=== PATIENT | male | born 1970 | race Caucasian/White ===

== ENCOUNTER 2017-04-21 04:33 | Inpatient (IN) | payer SELFPAY ==
[~2017-04-21] VITALS: Ht 172.7 cm; Wt 73.0 kg
[2017-04-21] VITALS (13 sets, daily range): BP systolic 83–121; BP diastolic 61–77
[~2017-04-21 04:33] MED LIST: ACET-2619 GT; ALBU3SOL49 NEB; BACL10TA4 GT; BISA10SU2 RC; CLON0.1T78 GT; COLI150P4 IH; FAMO-90 GT; GLU1I IM; GLYC15SO12 OP; INSU100S5 IJ; LACT10SO6 GT; LANTUS SC; LISI10TA11 GT; MAGN400S GT; MER1I IV; METO100T23 GT; NA P133E RC; NUTR30LI5 GT; ONDA4TAB GT; VANC750S IV
[2017-04-21] MEDS ORDERED: ACETAMINOPHEN 325 MG TAB ONE (04:50)
--- NOTE | 2017-04-21 04:50 | NUR ---
ABIBA FOR SOB/ELEVATED TEMP. MED. HX: DIABETES, HTN, NON-VERBAL, RESP, FAILURE. NO N/V/D. PT NON-VERBAL AND NON-AMBULATORY. BREATH SOUNDS DIMINSHED. HR SINUS TACHYCARDIC. PT FEBRILE UPON ARRIVAL TO THE ER AND BLOOD SUGAR IS "HIGH". BREATH SOUNDS DIMINISHED AND PT RECEIVED BREATHING TREATMENT EN ROUTE. PT RECEIVNG 15 LITERS ON NON-REBREATHER. PT HAS GTT. UA COLLECTED AND PT IS DIAPERED. PATIENT POSITIONED FOR COMFORT; HOB ELEVATED; BEDRAILS UP X2; BED DOWN. ER MD MADE AWARE OF PT STATUS.
[2017-04-21] MEDS ORDERED: INSULIN HUMAN REGULAR 100 UNITS/ML 10 ML VIAL IVP ONE (05:00)
[2017-04-21 05:20] LABS: ACETONE, SERUM NEGATIVE (NEGATIVE)
[2017-04-21 05:21] LABS: LIPASE 180 U/L (73-393)
[2017-04-21 05:28] LABS: HEMATOCRIT 48.9 % (36-52); HEMOGLOBIN 15.4 g/dL (12.0-18.0); MEAN CORPUSCULAR HEMOGLOBIN 30 pg (27-31); MEAN CORPUSCULAR HGB CONC 32 g/dL (33-37); MEAN CORPUSCULAR VOLUME 95 fL (80-94); PLATELET COUNT (AUTO) 307 K/uL (140-450); RED BLOOD CELL COUNT(AUTO) 5.15 MIL/uL (4.20-6.10); RED CELL DISTRIBUTION WIDTH 13.9 % (11.6-13.7); WHITE BLOOD COUNT (AUTO) 19.2 K/uL (4.8-10.8)
[2017-04-21 05:31] LABS: ALBUMIN 3.5 g/dL (3.4-5.0); ANION GAP 20.7 (8-16); CARBON DIOXIDE 22.7 mmol/L (21-32); CREATININE 1.6 mg/dL (0.7-1.3); POTASSIUM 4.4 mmol/L (3.5-5.1); TOTAL BILIRUBIN 0.6 mg/dL (0.0-1.0)
--- NOTE | 2017-04-21 05:37 | NUR ---
LACTIC ACID REPORT TO DR ANDRADE.
[2017-04-21 05:38] LABS: LYMPHOCYTES % (MANUAL) 6 % (20-46); MONOCYTES % (MANUAL) 4 % (5-12)
--- NOTE | 2017-04-21 05:42 | NUR ---
BLOOD GLUCOSE LEVEL REPORTED TO DR ANDRADE.
[2017-04-21] MEDS ORDERED: PIPERACILLIN/TAZOBACTAM 2.25 GM VIAL IV ONE (05:45)
[2017-04-21] MEDS ORDERED: PIPERACILLIN/TAZOBACTAM 4.5 GM in DEXTROSE 5% 100 ML IV ONE (05:45)
[2017-04-21] MEDS ORDERED: NACL 0.9% 1,000 ML IV ONE ×2 (05:55→06:15)
--- NOTE | 2017-04-21 06:00 | NUR ---
PT TOLERATING TREATMENT. ANTIBIOTICS STARTED. COOLING MEASURES EFFECTIVE. HEART RATE AND RESPIRATIONS IMPROVING FROM UPON ARRIVAL TO ED.
[2017-04-21] MEDS ORDERED: NACL 0.9% 3,000 ML IV ONE (06:30)
--- NOTE | 2017-04-21 07:13 | NUR ---
REPORT TO FRANK ARBOLEDA
--- NOTE | 2017-04-21 07:15 | NUR ---
received report from Carmen MARIE. er md hurt by bedside reexamining patient. pt tolerating non-rebreather. pulse ox=98%. pt in nad. vss. will continue to monitor.
[2017-04-21] MEDS ORDERED: NACL 0.9% 1,000 ML IV SCH (07:22)
[2017-04-21] MEDS ORDERED: HYDROmorphone PFS 2 MG/ML SYR IVP SCH (07:25)
[2017-04-21] MEDS ORDERED: HYDROcodone/APAP 7.5/325 MG 1 TAB PO PRN ×2 (07:25)
[2017-04-21] MEDS ORDERED: ACETAMINOPHEN 325 MG TAB PO PRN ×2 (07:25)
[2017-04-21] MEDS ORDERED: ONDANSETRON 4 MG/2 ML VIAL IVP PRN ×2 (07:25)
[2017-04-21] MEDS ORDERED: POTASSIUM CHL 20 MEQ/ 1/2 NS 1,000 ML IV ONE (07:25)
[2017-04-21] MEDS ORDERED: LORazepam 2 MG/ML VIAL IVP SCH (07:25)
[2017-04-21] MEDS ORDERED: ALBUTEROL SULFATE/IPRATROPIU 3 ML SOL IH PRN (07:25)
[2017-04-21] MEDS ORDERED: DEXTROSE 50% 50 ML SYR IVP PRN (07:25)
[2017-04-21] MEDS ORDERED: BLOOD GLUCOSE MONITORING 1 DEV DEV FS SCH (07:30)
--- NOTE | 2017-04-21 08:00 | NUR ---
Patient will be admitted to care of Antonio. Admited to ICU. Will go to room ICU #2. Belongings list completed. Bedside Report to Baylee.
[2017-04-21 08:22] LABS: APPEARANCE,URINE CLEAR (CLEAR); BILIRUBIN,URINE NEGATIVE (NEGATIVE); BLOOD, URINE NEGATIVE (NEGATIVE); COLOR,URINE YELLOW (YELLOW); LEUKOCYTE ESTERASE ,URINE NEGATIVE (NEGATIVE); NITRITE, URINE NEGATIVE (NEGATIVE); PH,URINE 5.5 (5.0-9.0); UGLUCOSE 3+ (NEGATIVE)
[2017-04-21 08:26] LABS: BARBITURATE, URINE NEG. ng/ml (NEG <=200); BENZODIAZEPINE, URINE NEG. ng/mL (NEG <=200); CANNABINOID, URINE NEG. ng/mL (NEG <=50); COCAINE, URINE NEG. ng/mL (NEG <=300); OPIATE, URINE NEG. ng/mL (NEG <=2000); PHENCYCLIDINE SCREEN,URINE NEG. ng/mL (NEG <=25)
--- NOTE | 2017-04-21 08:30 | NUR ---
PT TRANSFERRED FROM ER TO ICU VIA GURNEY. PT IS NONVERBAL, DOES NOT FOLLOW COMMANDS AND UNABLE TO MAKE NEEDS KNOWN. FLACC 0. NONVERBAL. PT IS QUADRIPLEGIC. SINUS TACHY ON MONITOR. S1, S2 HEARD. ON O2 AT 15 LPM VIA NONREBREATHER MASK. WHEEZES AND RHONCHI HEARD FROM BL LUNGS. NO SOB NOTED. PT IS TACHYPNEIC. BREATHING IS EVEN BUT LABORED. PERIPHERAL IV G20 TO RIGHT HAND ASYMPTOMATIC, PATENT AND INTACT, SALINE LOCKED. G-TUBE IN PLACE, SMALL AMOUNT OF PURULENT DRAINAGE NOTED FROM G-TUBE SITE. ABDOMEN SOFT, NON DISTENDED, NONTENDER WITH ACTIVE BOWEL SOUNDS. OPEN WOUND TO SACRAL AREA AND LEFT HEEL NOTED. SKIN IS DRY AND WARM TO TOUCH. NO EDEMA NOTED. HOB 30 DEGREES, BED IN LOW POSITION AND CALL LIGHT WITHIN REACH. SAFETY PRECAUTIONS IN PLACE. WILL CONTINUE TO MONITOR.
[2017-04-21 08:33] LABS: RBC,URINE 0-5 (RARE) /HPF (0-5); WBC,URINE 0-5 (RARE) /HPF (0-5)
[2017-04-21 08:39] LABS: CHOL/HDL RATIO 7.2 (1-4.5); FREE T4 (FREE THYROXINE) 1.23 ng/dL (0.76-1.46); MAGNESIUM 3.4 mg/dL (1.8-2.4); PHOSPHORUS 3.2 mg/dL (2.5-4.9); THYROID STIMULATING HORMONE 0.75 uIU/mL (0.34-3.74)
[2017-04-21] MEDS ORDERED: DOCUSATE SODIUM 100 MG GELCAP PO SCH (09:00)
[2017-04-21] MEDS ORDERED: PANTOPRAZOLE 40 MG INJ VIAL IVP SCH (09:00)
[2017-04-21] MEDS: DOCUSATE SODIUM 100 MG GELCAP PO SCH ×2 (09:00→20:36)
--- NOTE | 2017-04-21 09:30 | NUR ---
MEDICATIONS ADMINISTERED. HELD COLACE GEL DUE TO UNABLE TO ADMINISTER VIA G-TUBE. DR. MULTANI MADE AWARE AND NOTIFIED TO CHANGE ORDER TO LIQUID FORM.
[2017-04-21] MEDS: BLOOD GLUCOSE MONITORING 1 DEV DEV FS SCH ×8 (09:34→23:41)
--- NOTE | 2017-04-21 09:45 | NUR ---
CHANGE PT OT 50% VENTURI MASK SPO2 IS 97
[2017-04-21] MEDS: PANTOPRAZOLE 40 MG INJ VIAL IVP SCH (09:48)
--- NOTE | 2017-04-21 09:52 | NUR ---
RETURNED PT TO 100%NRB PT DESAT
[2017-04-21] MEDS: INSULIN LISPRO SLIDING SCALE 100 UNITS/ML VIAL SUBQ PRN ×8 (09:58→23:42)
[2017-04-21 10:19] LABS: ANION GAP 15.8 (8-16); CARBON DIOXIDE 27.4 mmol/L (21-32); CREATININE 1.4 mg/dL (0.7-1.3); POTASSIUM 4.2 mmol/L (3.5-5.1)
[2017-04-21] MEDS ORDERED: SODIUM PHOSPHATE 118 ML ENEM RC SCH (10:45)
[2017-04-21] MEDS ORDERED: MAGNESIUM HYDROXIDE 400 MG GT PRN (10:45)
[2017-04-21] MEDS ORDERED: NON-FORMULARY ITEM (Clonidine Hydrochloride (Clonidine) 0.1 MG) GT PRN (10:45)
[2017-04-21] MEDS ORDERED: NON-FORMULARY ITEM (Bisacodyl (Dulcolax) 10 MG) RC PRN (10:45)
--- NOTE | 2017-04-21 11:00 | NUR ---
CLEANED AND REPOSITIONED PT. TOLERATED WELL. NO ACUTE DISTRESS NOTED. WILL CONTINUE TO MONITOR.
[2017-04-21 11:41] LABS: PROTHROMBIN TIME 10.5 secs (10.8-13.4)
[2017-04-21] MEDS ORDERED: cloNIDine 0.1 MG TAB GT PRN (12:05)
[2017-04-21] MEDS: LEVOFLOXACIN 750 MG/D5W PREMIX 150 ML IV SCH (12:07)
[2017-04-21] MEDS ORDERED: BISACODYL 10 MG SUPP RC PRN (12:45)
[2017-04-21] MEDS: ALBUTEROL SULFATE/IPRATROPIU 3 ML SOL IH SCH ×2 (12:59→19:36)
[2017-04-21] MEDS: CLINDAMYCIN 600 MG in DEXTROSE 5% 50 ML IV SCH ×3 (13:02→23:42)
--- NOTE | 2017-04-21 13:30 | NUR ---
PT HR 140. RESIDENT PHYSICIAN DR. MULTANI MADE AWARE. ORDERS RECEIVED.
[2017-04-21 13:55] LABS: ANION GAP 15.4 (8-16); CARBON DIOXIDE 26.6 mmol/L (21-32); CREATININE 1.2 mg/dL (0.7-1.3)
[2017-04-21] MEDS ORDERED: NACL 0.45% 1,000 ML IV SCH (13:55)
[2017-04-21] MEDS ORDERED: METOPROLOL 50 MG TAB GT SCH (14:00)
[2017-04-21] MEDS ORDERED: DEXTROSE 5% 1,000 ML IV ONE (15:00)
--- NOTE | 2017-04-21 15:00 | NUR ---
NO CHANGE OF CONDITION AT THIS TIME. NO SOB OR ACUTE DISTRESS NOTED. SAFETY PRECAUTIONS IN PLACE. WILL CONTINUE TO MONITOR.
[2017-04-21 15:47] LABS: ANION GAP 14.8 (8-16); CARBON DIOXIDE 26.2 mmol/L (21-32); CREATININE 1.1 mg/dL (0.7-1.3)
[2017-04-21] MEDS: DEXTROSE 5% 1,000 ML IV SCH (15:59)
--- NOTE | 2017-04-21 17:06 | NUR ---
CHANGE PT OT 50% VENTURI MASK SPO2 97
--- NOTE | 2017-04-21 17:46 | NUR ---
RESIDENT PHYCISIAN DR. CHATTERJEE IN TO SEE PT. WILL FOLLOW UP ON ORDERS.
--- NOTE | 2017-04-21 17:46 | NUR ---
PT'S HR 112, BP 91,71, RR 37, O2 SAT 95% ON 15 L O2 VIA FACE MASK. DR. CHATTERJEE AT BEDSIDE AND AWARE OF INCREASED HR AND DECREASED BP. WILL FOLLOW UP ON ORDERS.
[2017-04-21 18:39] LABS: ANION GAP 13.7 (8-16); CARBON DIOXIDE 26.2 mmol/L (21-32); CREATININE 1.1 mg/dL (0.7-1.3); POTASSIUM 3.9 mmol/L (3.5-5.1)
--- NOTE | 2017-04-21 19:29 | NUR ---
REPORT GIVEN TO NIGHT NURSE FOR CONTINUITY OF CARE. NO ACUTE DISTRESS AT THIS TIME.
--- NOTE | 2017-04-21 19:30 | NUR ---
RECEIVED REPORT FORM FRANK ANDRADE AT BEDSIDE, PT IS LETHARGIC, NONVERBAL, NOT ABLE TO FOLLOW COMMANDS, NO S/S OF DISTRESS, ON VANTI MASK AT 15 L, RHONCHI LUNG SOUNDS, ST ON PREDATORY ANIMAL EXTERMINATOR, SOFT ABDOMEN NOTED WITH ACTIVE BOWEL SOUNDS, GT IN PLACE, FEEDING WITH DIABETISOURCE AT 10ML /HR WITH 0ML RESIDUALS, DAVIS CATHETER IN PLACE WITH CLEAR YELLOW URINE NOTED, SEVERE WEAKNESS TO ALL EXTREMITIES, SKIN IS WARM AND DRY TO TOUCH, OPEN WOUND PRESENT (SEE WOUND ASSESSMENT), IV LINE TO RIGHT HAND, 20GA, PATENT, RUNNING D5 WATER AT 60ML/HR. VSS, FLACC 0, HOB ELEVATED 30 DEGREES, SAFETY PRECAUTION IN PLACE, WILL CONTINUE TO MONITOR.
--- NOTE | 2017-04-21 19:40 | NUR ---
ACCU CHECK WITH RESULT OF 258MG/DL, 6 UNITS OF INSULIN GIVEN.
[2017-04-21] MEDS: POLYVINYL ALCOHOL 1.4% OP 15 ML SOL OP SCH (20:35)
[2017-04-21] MEDS: METOPROLOL 50 MG TAB GT SCH (20:36)
[2017-04-21] MEDS: SIMVASTATIN 20 MG TAB GT SCH (20:36)
[2017-04-21] MEDS: BACLOFEN 10 MG TAB GT SCH (20:37)
[2017-04-21] MEDS: INSULIN LANTUS 100 UNITS/ML 10 ML VIAL SUBQ SCH (20:38)
[2017-04-21] MEDS ORDERED: HYPROMELLOSE OP SCH (21:00)
[2017-04-21] MEDS ORDERED: PEG OP SCH (21:00)
[2017-04-21] MEDS ORDERED: METOPROLOL TARTRATE 100 MG GT SCH (21:00)
[2017-04-21] MEDS ORDERED: GLYCERIN OP SCH (21:00)
--- NOTE | 2017-04-21 21:45 | NUR ---
ACCU CHECKED WITH 211 MG/DL, 4 UNITS OF INSULIN GIVEN, VSS, FLACC 0, POSITION CHANGED FOR OFF LOAD PRESSURE.
[2017-04-21 22:18] LABS: ANION GAP 12.7 (8-16); CREATININE 1.1 mg/dL (0.7-1.3); POTASSIUM 3.7 mmol/L (3.5-5.1)
[2017-04-22] VITALS (8 sets, daily range): BP systolic 92–110; BP diastolic 60–74
--- NOTE | 2017-04-22 | NUR ---
PT IS ASLEEP SOUNDLY IN BED, ON O2 AT 4L VIA NC AT THIS TIME, NO S/S OF DISTRESS, POSITION CHANGED FOR OFF LOAD PRESSURE.
--- NOTE | 2017-04-22 | NUR ---
PT PLACED ON 4LPM NC, TOLERATING WELL, O2 SAT 97%, WILL CONTINUE TO MONITOR.
[2017-04-22 00:30] LABS: ANION GAP 11.9 (8-16); CARBON DIOXIDE 27.9 mmol/L (21-32); POTASSIUM 3.8 mmol/L (3.5-5.1)
--- NOTE | 2017-04-22 02:00 | NUR ---
NO CHANGE OF CONDITION AT THIS TIME, POSITION CHANGED FOR OFF LOAD PRESSURE.
[2017-04-22] MEDS: BLOOD GLUCOSE MONITORING 1 DEV DEV FS SCH ×11 (02:13→20:53)
[2017-04-22] MEDS: INSULIN LISPRO SLIDING SCALE 100 UNITS/ML VIAL SUBQ PRN ×8 (02:14→20:52)
[2017-04-22 03:24] LABS: CARBON DIOXIDE 28.6 mmol/L (21-32); POTASSIUM 3.6 mmol/L (3.5-5.1)
--- NOTE | 2017-04-22 04:00 | NUR ---
AM CARE AND ORAL CARE PROVIDED, F/C PERFORMED, POSITION CHANGED FOR OFF LOAD PRESSURE. VSS.
--- NOTE | 2017-04-22 06:00 | NUR ---
ACCU CHECK DONE WITH RESULT OF 235MG/DL, 4 UNITS INSULIN GIVEN, O2 ON 3L VIA NC NOW, NO S/S OF DISTRESS, POSITION CHANGED FOR OFF LOAD PRESSURE.
[2017-04-22] MEDS: CLINDAMYCIN 600 MG in DEXTROSE 5% 50 ML IV SCH ×3 (06:04→17:38)
[2017-04-22] MEDS: ALBUTEROL SULFATE/IPRATROPIU 3 ML SOL IH SCH ×2 (06:14→18:59)
[2017-04-22 06:20] LABS: BASOPHILS # (AUTO) 0.6 K/uL (0.00-0.22); EOSINOPHILS # (AUTO) 0.2 K/uL (0-0.4); EOSINOPHILS % (AUTO) 1.1 % (0.0-4.0); HEMATOCRIT 37.5 % (36-52); HEMOGLOBIN 12.4 g/dL (12.0-18.0); LYMPHOCYTES # (AUTO) 1.7 K/uL (2.0-11.5); LYMPHOCYTES % (AUTO) 12.2 % (20.5-51.1); MEAN CORPUSCULAR HEMOGLOBIN 31 pg (27-31); MEAN CORPUSCULAR HGB CONC 33 g/dL (33-37); MEAN CORPUSCULAR VOLUME 95 fL (80-94); MONOCYTES # (AUTO) 0.3 K/uL (0.8-1.0); NEUTROPHILS # (AUTO) 11.3 K/uL (1.8-7.7); NEUTROPHILS % (AUTO) 80.7 % (42.2-75.2); PLATELET COUNT (AUTO) 237 K/uL (140-450); RED BLOOD CELL COUNT(AUTO) 3.96 MIL/uL (4.20-6.10); RED CELL DISTRIBUTION WIDTH 13.5 % (11.6-13.7); WHITE BLOOD COUNT (AUTO) 14.1 K/uL (4.8-10.8)
[2017-04-22 07:08] LABS: ANION GAP 11.8 (8-16); CARBON DIOXIDE 27.9 mmol/L (21-32); POTASSIUM 3.7 mmol/L (3.5-5.1)
[2017-04-22 07:12] LABS: MAGNESIUM 2.6 mg/dL (1.8-2.4); PHOSPHORUS 2.7 mg/dL (2.5-4.9)
--- NOTE | 2017-04-22 07:30 | NUR ---
RECEIVED PT FROM CRACKING UNIT OPERATOR RN, PT OPENS EYES, UNABLE TO FOLLOW COMMANDS. BEDSIDE MONITOR SHOWS ST. ON O2 NC 3L/MIN, NO S/S OF RESPIRATORY DISTRESS NOTED. PT ON DIABETISOURCE FEEDING AT 60 CC/HR, 50 CC RESIDUAL NOTED, RETURNED IT BACK. DAVIS CATH IN PLACE WITH SMALL AMOUNT OF LIGHT MACY URINE NOTED. IV TO RIGHT HAND # 20 RUNNING D5 AT 60 ML/HR, SITE INTACT AND PATENT, SKIN NON INTACT, SEE WOUND ASSESSMENT, TURNED AND REPOSITIONED PT, ORAL CARE GIVEN, WILL CONTINUE TO MONITOR.
[2017-04-22] MEDS: DEXTROSE 5% 1,000 ML IV SCH (07:55)
--- NOTE | 2017-04-22 08:58 | NUR ---
PATIENT HAS BEEN SCREENED AND CATEGORIZED HIGH NUTRITION RISK. PATIENT WILL BE SEEN WITHIN 1-2 DAYS OF ADMISSION. 04/21/18-04/22/[address]
[2017-04-22] MEDS ORDERED: NON-FORMULARY ITEM (Lactulose 20 GM) GT SCH (09:00)
[2017-04-22] MEDS: DOCUSATE SODIUM 100 MG GELCAP PO SCH ×2 (09:19→21:31)
[2017-04-22] MEDS: LACTULOSE 20 GM/30 ML UDC GT SCH (09:19)
[2017-04-22] MEDS: LACTOBACILLUS RHAMNOSUS GG 1 EACH CAP GT SCH (09:19)
[2017-04-22] MEDS: METOPROLOL 50 MG TAB GT SCH ×2 (09:20→20:59)
[2017-04-22] MEDS: LISINOPRIL 10 MG TAB GT SCH (09:20)
[2017-04-22] MEDS: BACLOFEN 10 MG TAB GT SCH ×2 (09:20→21:31)
[2017-04-22] MEDS: PANTOPRAZOLE 40 MG INJ VIAL IVP SCH (09:21)
[2017-04-22] MEDS: POLYVINYL ALCOHOL 1.4% OP 15 ML SOL OP SCH ×2 (09:44→21:32)
[2017-04-22 10:13] LABS: ANION GAP 13.2 (8-16); CARBON DIOXIDE 26.3 mmol/L (21-32); POTASSIUM 3.5 mmol/L (3.5-5.1)
--- NOTE | 2017-04-22 11:05 | NUR ---
PATIENT RECEIVED TO THE UNIT FROM ICU. PATIENT AWAKE BUT APHASIC. PATIENT ON 3L O2, O2 SATURATION 97% AT THIS TIME. NO S/S OF DISTRESS NOTED. G-TUBE IN PLACE. DAVIS CATHETER IN PLACE, DRAINING DARK MACY URINE. CLOSED TRACH STOMA NOTED. SCDS IN PLACE. PATIENT PLACED ON TELE MONITORING. BED LOWERED WITH CALL LIGHT WITHIN REACH.
--- NOTE | 2017-04-22 11:15 | NUR ---
PT TRANSFERRED TO TELE 10A, BEDSIDE REPORT GIVEN TO LAINE MARIE.
--- NOTE | 2017-04-22 11:30 | NUR ---
SKIN EVALUATED WITH WOUND CARE NURSE. SKIN PREP APPLIED TO DTI ON THE LEFT HEEL, HEEL PROTECTOR IN PLACE. INCONTINENCE ASSOCIATED WOUND ON THE BUTTOCKS CLEANSED, OPTIFOAM APPLIED. PICTURES TAKEN
[2017-04-22] MEDS: LEVOFLOXACIN 750 MG/D5W PREMIX 150 ML IV SCH (12:27)
--- NOTE | 2017-04-22 13:14 | NUR ---
WOUND EVALUATION NOTE: REASON FOR WOUND EVALUATION: SACRUM AND LEFT HEEL ULCERS SKIN ASSESSMENT DONE ON THIS 89 Y/O MALE PATIENT [place] [facility] [place] [facility], WITH INITIAL DIAGNOSIS OF ELEVATED BLOOD GLUCOSE. PAST MEDICAL HISTORY INCLUDE DM, HTN, QUADRIPLEGIA, APHASIA, VEGETATIVE STATUS. ALL ABOVE INFORMATION WAS OBTAINED FROM THE ADMISSION H&P. LABS ARE WBC 14.1, H/H 12.4/37.5, GLUCOSE 299, ALBUMIN 3.5. SKIN WARM TO TOUCH, TOENAILS ARE SLIGHTLY THICKENED, NO EDEMA, BLE WITH HAIR GROWTH AND NORMAL PEDAL PULSES. G TUBE IN PLACE , #16 FR F/C PATENT AND INTACT. INCONTINENT OF BOWEL. PT. HAD LARGE SOFT BM DURING SKIN ASSESSMENT. PLAN OF CARE AND PRESSURE PREVENTIVE MEASURES DISCUSSED WITH PRIMARY RN. INTEGUMENTARY: OLD HEALED TRACH STOMA, CLEAN AND DRY GT SITE LYLE-STOMA CLEAN AND INTACT LEFT AND RIGHT BUTTOCKS IAD WITH MULTIPLE SMALL OPEN AREAS , LARGEST MEASURED AT LEFT BUTTOCK 1.5X0.6X0.1 AND RIGHT BUTTOCK 0.5X0.5X0.1 CM SACROCOCCYX - BLANCHABLE REDNESS SKIN INTACT, CLARIFICATION: NO PRESSURE ULCER INJURY ON SACRALCOCCYX AREA LEFT MEDIAL HEEL DTI 100% MAROON, 4X4CM RECOMMENDATIONS: -APPLY SKIN PREP TO LEFT MEDIAL HEEL BIDWC AND LEAVE IT OPEN TO AIR -CLEANSE L/R BUTTOCKS IAD WITH SOAP AND WATER, PAT DRY , APPLY Z GUARD BID WC AND LEAVE OPEN TO AIR -TURN AND REPOSITION PATIENT Q2H -ASSESS AND MONITOR SKIN CONDITION DURING POSITION CHANGE, PLEASE PAY ATTENTION TO LEFT HEEL -OFFLOAD BILATERAL HEELS BY PLACING PILLOWS UNDER CALVES AT ALL TIMES, UNLESS OTHERWISE CONTRAINDICATED -KEEP SKIN CLEAN AND DRY AT ALL TIMES. -HEEL RAISER TO LEFT HEEL AT ALL TIMES. -PRESSURE REDISTRIBUTION SURFACE THERAPY -CONTINUE TO FOLLOW RD RECOMMENDATION COMORBIDITIES FOR WOUND HEALING: DM, QUADRIPLEGIA, HOB ELEVATED MAJORITY OF THE DAY FOR MEDICAL CONDITIONS RECOMMENDATIONS DISCUSSED WITH PRIMARY RN AND DR. QUIGLEY WILL FOLLOW UP PATIENT Q 7-10 DAYS AND PRN. PLEASE CONTACT WOUND CARE NURSE FOR ANY QUESTIONS AND CHANGES IN WOUND CONDITION.
--- NOTE | 2017-04-22 13:15 | NUR ---
pt sleeping with no signs of distress noted at this time
[2017-04-22 15:42] LABS: ANION GAP 13.7 (8-16); CARBON DIOXIDE 24.6 mmol/L (21-32); CREATININE 0.9 mg/dL (0.7-1.3); POTASSIUM 3.3 mmol/L (3.5-5.1)
--- NOTE | 2017-04-22 16:15 | NUR ---
04/22/2017 RD INITIAL ASSESSMENT COMPLETED PLEASE REFER TO NUTRITION ASSESSMENT UNDER CARE ACTIVITY FOR ESTIMATED NUTRITIONAL NEEDS. CONTINUE CURRENT TUBE FEEDING ORDERED, CURRENT TUBE FEEDING IS PROVIDING 1728 KCALS AND 86 GM PRO/DAY, TO MEET 94% EST KCAL AND 118% EST PRO NEEDS/DAY--ADEQUATE PT TO RECEIVE DIABETISOURCE AC AND ANTIHYPERGLYCIEMIC MEDS FOR GLUCOSE CONTROL RD TO FOLLOW-UP IN 2-3 DAYS PATIENT IS HIGH RISK. IRISH CASTREJON, RD
--- NOTE | 2017-04-22 17:30 | NUR ---
NOTIFIED DR SHOAIB CAMERON ABOUT PATIENT'S POTASSIUM LEVEL OF 3.3 AND LOW URINE OUTPUT
--- NOTE | 2017-04-22 19:26 | NUR ---
PATIENT REPORT GIVEN AT BEDSIDE. PATIENT ENDORSED IN STABLE CONDITION.
--- NOTE | 2017-04-22 19:30 | NUR ---
RECEIVED PT FROM LAINE MARIE PT IS OPEN EYES DOES NOT FOLLOW COMMANDS, NON VERBAL,QUADRIPLEGIC, ON TELEMETRY SR, IV ON RT HAND INFUSING WELL ABD G TUBE ZERO RESIDUAL DRESSING DRY AND INTACT ON WOUNDS SEE WOUND DOCUMENTATION, REPOSITIONED INITIAL ASSESSMENT DONE
[2017-04-22 20:22] LABS: ANION GAP 13.1 (8-16); CARBON DIOXIDE 26.4 mmol/L (21-32); CREATININE 0.9 mg/dL (0.7-1.3); POTASSIUM 3.5 mmol/L (3.5-5.1)
[2017-04-22] MEDS: INSULIN LANTUS 100 UNITS/ML 10 ML VIAL SUBQ SCH (21:19)
--- NOTE | 2017-04-22 21:30 | NUR ---
BLOOD SUGAR TEST 258 COVERAGE WITH 6 UNITS SUBQ HUMALOG PROTOCOL
[2017-04-22] MEDS: SIMVASTATIN 20 MG TAB GT SCH (21:31)
[2017-04-22 21:44] LABS: ANION GAP 18.7 (8-16); CARBON DIOXIDE 22.9 mmol/L (21-32); CREATININE 1.1 mg/dL (0.7-1.3); POTASSIUM 3.6 mmol/L (3.5-5.1)
[2017-04-23] VITALS: BP 101/63
--- NOTE | 2017-04-23 | NUR ---
PT REPOSITIONED NOT DISTRESS NOTED ON TELEMETRY SR
[2017-04-23] MEDS: DEXTROSE 5% 1,000 ML IV SCH ×2 (00:35→04:51)
[2017-04-23] MEDS: BLOOD GLUCOSE MONITORING 1 DEV DEV FS SCH ×7 (01:00→20:36)
[2017-04-23] MEDS: INSULIN LISPRO SLIDING SCALE 100 UNITS/ML VIAL SUBQ PRN ×6 (01:18→20:40)
--- NOTE | 2017-04-23 03:00 | NUR ---
PT HAS BEEN REPOSITIONED Q2H NOT DISTRESS NOTED G TUBE FEEDING WELL TOLERATED ON TELEMETRY ST
[2017-04-23 04:00] VITALS: BP 94/56
[2017-04-23] MEDS: CLINDAMYCIN 600 MG in DEXTROSE 5% 50 ML IV SCH ×4 (05:49→13:38)
--- NOTE | 2017-04-23 05:58 | NUR ---
SPONGE BATH GIVEN LINEN CHANGED REPOSITIONED ON TELE ST
--- NOTE | 2017-04-23 06:36 | NUR ---
BLOOD SUGAR TEST 208 COVERAGE WITH 4 UNITS SUBQ HUMALOG PROTOCOL
[2017-04-23 07:10] LABS: BASOPHILS # (AUTO) 0.3 K/uL (0.00-0.22); BASOPHILS % (AUTO) 2.7 % (0.0-2.0); EOSINOPHILS # (AUTO) 0.1 K/uL (0-0.4); EOSINOPHILS % (AUTO) 0.6 % (0.0-4.0); HEMATOCRIT 32.1 % (36-52); LYMPHOCYTES # (AUTO) 1.7 K/uL (2.0-11.5); LYMPHOCYTES % (AUTO) 17.5 % (20.5-51.1); MEAN CORPUSCULAR HEMOGLOBIN 32 pg (27-31); MEAN CORPUSCULAR HGB CONC 34 g/dL (33-37); MEAN CORPUSCULAR VOLUME 93 fL (80-94); MONOCYTES # (AUTO) 0.2 K/uL (0.8-1.0); MONOCYTES % (AUTO) 1.8 % (1.7-9.3); NEUTROPHILS # (AUTO) 7.2 K/uL (1.8-7.7); NEUTROPHILS % (AUTO) 77.4 % (42.2-75.2); PLATELET COUNT (AUTO) 217 K/uL (140-450); RED BLOOD CELL COUNT(AUTO) 3.46 MIL/uL (4.20-6.10); RED CELL DISTRIBUTION WIDTH 13.4 % (11.6-13.7); WHITE BLOOD COUNT (AUTO) 9.5 K/uL (4.8-10.8)
--- NOTE | 2017-04-23 07:10 | NUR ---
RECEIVED REPORT AT BEDSIDE FROM ANIMAL BEHAVIORIST NURSE FOR CONTINUITY OF CARE. PT IN BED RESTING WITH EYES CLOSED. PT NOTED WITH O2 VIA NC @2L/MIN VIA NC. DRY DRESSING TO LOWER LIP. PER ANIMAL BEHAVIORIST NURSE HE WAS BITTING LIP . APPLIED FOR PROTECTION. PT WITH RIGHT HAND IV 20G WITH D5 @60ML/HR. GTUBE WITH DIABETES SOURCE AT 60ML/HR AND [id number]. FC PATENT AND INTACT . YELLOW CLEAR URINE IN DRAINAGE BAG. WOUND CARE NURSE IN THIS MORNING PER ANIMAL BEHAVIORIST NURSE AND WOUND CARE DONE. WILL CONT TO MONITOR PT.
[2017-04-23 07:19] LABS: CARBON DIOXIDE 26.5 mmol/L (21-32); CREATININE 0.7 mg/dL (0.7-1.3); POTASSIUM 3.5 mmol/L (3.5-5.1)
[2017-04-23 07:23] LABS: MAGNESIUM 2.5 mg/dL (1.8-2.4); PHOSPHORUS 2.9 mg/dL (2.5-4.9)
[2017-04-23 08:01] VITALS: BP 104/64
[2017-04-23] MEDS: ALBUTEROL SULFATE/IPRATROPIU 3 ML SOL IH SCH ×3 (08:05→20:08)
[2017-04-23] MEDS: LISINOPRIL 10 MG TAB GT SCH (09:00)
[2017-04-23] MEDS: METOPROLOL 50 MG TAB GT SCH ×2 (09:00→20:31)
--- NOTE | 2017-04-23 09:01 | NUR ---
ASSISTED DEPARTMENT HEAD W/ ADLS. PT IS CLEAN AND DRY. DRESSINGS ARE ALL INTACT. PER MD, WEAN OFF O2 TODAY. PT IS 95% ON ROOM AIR. NO SIGNS OF DISTRESS. WILL CONTINUE TO MONITOR PT.
[2017-04-23] MEDS: PANTOPRAZOLE 40 MG INJ VIAL IVP SCH (09:07)
[2017-04-23] MEDS: BACLOFEN 10 MG TAB GT SCH ×2 (09:08→20:31)
[2017-04-23] MEDS: LACTULOSE 20 GM/30 ML UDC GT SCH (09:08)
[2017-04-23] MEDS: LACTOBACILLUS RHAMNOSUS GG 1 EACH CAP GT SCH (09:09)
[2017-04-23] MEDS: POLYVINYL ALCOHOL 1.4% OP 15 ML SOL OP SCH ×2 (09:12→20:30)
[2017-04-23] MEDS: DOCUSATE 100 MG/10 ML UDC GT SCH ×2 (09:15→20:31)
--- NOTE | 2017-04-23 09:26 | NUR ---
ADMINISTERED MORNING MEDS VIA GTUBE. CHECKED FOR PLACEMENT. CHECKED FOR RESIDUAL. RESIDUAL OF 100ML. WILL HOLD FEEDING FOR 1 HR AND RECHECK. ASKED MD TO CHANGE FROM GELCAP TO LIQUID. D/T TO RESIDUAL PLUS 120ML OF MEDS AND FLUSH, HOLDING OFF ON THE COLACE. PT HAS ANOTHER DOSE DUE IN THE EVENING. ON ROOM AIR, STILL O2 SAT AT 95%. WILL CONTINUE TO MONITOR PT.
--- NOTE | 2017-04-23 10:44 | NUR ---
PT RESTING COMFORTABLY. NO SIGNS OF DISTRESS. CHANGED THE BATTERY ON THE TELE MONITOR. CHECKED FOR RESIDUAL, ONLY 3 MLS. RESTARTED FEEDING. PT TOLERATING WELL. WILL CONTINUE TO MONITOR PT.
--- NOTE | 2017-04-23 10:49 | NUR ---
SPOKE TO RT REGARDING LAB CALLING AND NOTIFIED THAT SPUTUM SPECIMEN WAS NOT VALID BECAUSE IT HAD TOO MUCH SALIVA. RT VERBALIZED THAT SHE WOULD COME TO COLLECT SPECIMEN.
--- NOTE | 2017-04-23 11:07 | NUR ---
SPOKE WITH DR BELL REGARDING PT LOW BP 81/47. BP MEDS HELD THIS AM . DR BELL VERBALIZED TO RAISE HOB , IF BP DOES NOT IMPROVE . TURN OFF G TUBE AND PLACE PT IN [place]EN[place]BURG POSITION. IF BP DOES NOT IMPROVE BY THEN NOTIFY MD FOR BOLUS ORDER.NO DISTRESS NOTED. PT OPENING EYES. RESP EVEN AND UNLABORED. HR 110. PULSE OX 97%. PT APHASIC BUT IS BASELINE. WILL CONT TO MONITOR PT.
--- NOTE | 2017-04-23 11:35 | NUR ---
RECHECKED BP AFTER HOB ELEVATED. BP 98/65,PT WITH EYES OPEN . NO ACUTE DISTRESS NOTED. HR 105. CALL LIGHT WITHIN REACH. WILL CONT TO MONITOR PT.
[2017-04-23 12:00] VITALS: BP 98/65
[2017-04-23] MEDS: LEVOFLOXACIN 750 MG/D5W PREMIX 150 ML IV SCH (12:04)
--- NOTE | 2017-04-23 13:18 | NUR ---
RECHECKED BP 96/63. HR 113. PATIENT IN BED WITH EYES CLOSED. RESP EVEN AND UNLABORED. NO ACUTE DISTRESS. CALL LIGHT WITHIN REACH. WILL CONT TO MONITOR PT.
--- NOTE | 2017-04-23 15:05 | NUR ---
PATIENT IN BED WITH EYES OPEN. TRACKS WITH EYES. NO ACUTE DISTRESS NOTED. NO PAIN NOTED. O FLACC SCORE. O2 SAT 94 % ON ROOM AIR.HR 109. WILL CONT TO MONITOR PT.
[2017-04-23 16:00] VITALS: BP 101/59
--- NOTE | 2017-04-23 16:00 | NUR ---
DR BELL WITH NEW ORDERS FOR CONTACT PRECAUTIONS FOR PT. PT PLACED ON CONTACT PRECAUTIONS WITH MDRO, E COLI, AND ESBL IN URINE. WILL CONT TO MONITOR PT.
[2017-04-23] MEDS ORDERED: LACTOBACILLUS RHAMNOSUS GG 1 EACH CAP PO SCH (17:00)
--- NOTE | 2017-04-23 18:05 | NUR ---
PT IN BED WITH EYES OPEN. PT CHANGED. GOOD PERICARE PROVIDED. T&R . O2 SAT @98% ON ROOM AIR. AND HR110. WILL CONT TO MONITOR PT.
--- NOTE | 2017-04-23 19:13 | NUR ---
ENDORSED REPORT TO SUPERVISOR COFFEE NURSE FOR CONTINUITY OF CARE AT BEDSIDE.
--- NOTE | 2017-04-23 19:20 | NUR ---
RECEIVED REPORT FROM AM NURSE. PT RESTING IN BED, APHASIC, QUADRIPLEGIC BEDBOUND, UNABLE TO VERBALIZE NEEDS. FLACC 2 WITH OCCASIONAL GRIMACE AND MOANS. SPO2 96% ON ROOM AIR, RR 28, HR 118, BP 107/63. DISPLAY CARD WRITER IN PLACE. DRESSING ON BOTTOM LIP CHANGED DUE TO PT BITING PER AM NURSE. GTUBE PLACEMENT VERIFIED, RESIDUAL 50ML, DIABETISOURCE ADMINISTERING WELL AT 60ML/HR. DAVIS CATH IN PLACE, DRAINING CLEAR YELLOW URINE WELL. PT HAS SACRAL WOUND, WILL ASSESS LATER. L HEEL WOUND NOTED, HEEL PROTECTOR IN PLACE. IV ACCESS ASYMPTOMATIC, PATENT AND INTACT. IVF INFUSING WELL. DISCUSSED AND REVIEWED PLAN OF CARE WITH PT, PT IS APHASIC, WILL CONTINUE WITH CONSTANT REINFORCEMENT. ALL NEEDS MET. ALL NEEDS MET. SAFETY MEASURES ENSURED. CALL LIGHT WITHIN REACH.
[2017-04-23 20:00] VITALS: BP 106/61
[2017-04-23] MEDS: PIPER/TAZO 3.375GM/D5W PREMIX 50 ML IV SCH (20:30)
[2017-04-23] MEDS: SIMVASTATIN 20 MG TAB GT SCH (20:31)
[2017-04-23] MEDS: INSULIN LANTUS 100 UNITS/ML 10 ML VIAL SUBQ SCH (20:39)
--- NOTE | 2017-04-23 21:00 | NUR ---
BLOOD GLUCOSE 275, ADMINISTERED INSULIN COVERAGE. GTUBE PLACEMENT VERIFIED, RESIDUAL 50ML, ADMINISTERED DUE MEDS WITH EDUCATION. TEMP 100.4, COOLING MEASURES ENSURED, ADMINISTERED TYLENOL. PT CLEAN AND DRY, SACRAL DRESSING CLEAN DRY INTACT, PT TURNED AND REPOSITIONED WITH WRIST HEMMER, OFFLOADED PRESSURE AREAS, PT TOLERATED WELL. ALL NEEDS MET. SAFETY MEASURES ENSURED. CALL LIGHT WITHIN REACH. SPOKE WITH DR CHATTERJEE, MADE AWARE OF PT'S IVF D5W AT 60ML/HR, DIABETISOURCE AT 60ML/HR, AND TRENDING ELEVATED BLOOD GLUCOSE WITH RECENT BG 275. NO ORDERS CHANGED, EXPLAINED THAT IT IS DUE TO PT'S NA 151 AT THIS TIME.
[2017-04-24] VITALS: BP 91/62
--- NOTE | 2017-04-24 00:30 | NUR ---
PT SLEEPING COMFORTABLY IN BED, AROUSABLE TO TOUCH. PT IS CLEAN AND DRY, PT TURNED AND REPOSITIONED WITH SCHOOL SERVICES OFFICER, OFFLOADED PRESSURE AREAS, TOLERATED WELL. GTUBE PLACEMENT VERIFIED, RESIDUAL 15ML, GTUBE FEEDING ADMINISTERING WELL. SPO2 95% ON ROOM AIR, RR 24, HR 96. INTERMITTENT COUGH NOTED. ORAL CARE PERFORMED. DRESSING TO BOTTOM LIP CHANGED. ALL NEEDS MET. IVF INFUSING WELL. SAFETY MEASURES ENSURED. CALL LIGHT WITHIN REACH.
[2017-04-24 04:00] VITALS: BP 99/60
[2017-04-24] MEDS: PIPER/TAZO 3.375GM/D5W PREMIX 50 ML IV SCH ×2 (04:18→12:07)
--- NOTE | 2017-04-24 04:20 | NUR ---
PT SLEEPING COMFORTABLY IN BED, AROUSABLE TO TOUCH. CHANGED SACRO-COCCYX DRESSING, L AND R COCCYX WOUNDS CLEANSED WITH NS AND GAUZE, PAT DRY, COVERED WITH OPTIFOAM DRESSING. PT TURNED AND REPOSITIONED WITH SALESPERSON RECREATIONAL VEHICLES, OFFLOADED PRESSURE AREAS, TOLERATED WELL. GTUBE PLACEMENT VERIFIED, RESIDUAL 25ML, GTUBE FEEDING ADMINISTERING WELL. SPO2 96% ON ROOM AIR, RR 28, HR 100. DRESSING TO BOTTOM LIP CHANGED. ADMINISTERED DUE MED ZOSYN IVP ORDERED. ALL NEEDS MET. IVF INFUSING WELL. SAFETY MEASURES ENSURED. CALL LIGHT WITHIN REACH.
[2017-04-24] MEDS: INSULIN LISPRO SLIDING SCALE 100 UNITS/ML VIAL SUBQ PRN ×2 (06:22→12:12)
[2017-04-24] MEDS: BLOOD GLUCOSE MONITORING 1 DEV DEV FS SCH ×2 (06:22→12:04)
--- NOTE | 2017-04-24 06:24 | NUR ---
BLOOD GLUCOSE 329, INSULIN COVERAGE ADMINISTERED, PT TOLERATED WELL. PT RESTING COMFORTABLY, SPO2 97% ON ROOM AIR, RR 24 EVEN AND AT BASELINE, HR 92. ALL NEEDS MET. GTUBE FEEDING ADMINISTERING WELL, IVF INFUSING WELL. SAFETY MEASURES ENSURED. CALL LIGHT WITHIN REACH.
[2017-04-24 07:12] LABS: ANION GAP 12.8 (8-16); CARBON DIOXIDE 23.8 mmol/L (21-32); CREATININE 0.8 mg/dL (0.7-1.3); POTASSIUM 3.6 mmol/L (3.5-5.1)
[2017-04-24 07:15] LABS: BASOPHILS # (AUTO) 0.2 K/uL (0.00-0.22); EOSINOPHILS # (AUTO) 0.1 K/uL (0-0.4); EOSINOPHILS % (AUTO) 0.9 % (0.0-4.0); HEMATOCRIT 31.4 % (36-52); HEMOGLOBIN 10.7 g/dL (12.0-18.0); LYMPHOCYTES # (AUTO) 1.1 K/uL (2.0-11.5); LYMPHOCYTES % (AUTO) 13.3 % (20.5-51.1); MEAN CORPUSCULAR HEMOGLOBIN 31 pg (27-31); MEAN CORPUSCULAR HGB CONC 34 g/dL (33-37); MEAN CORPUSCULAR VOLUME 92 fL (80-94); MONOCYTES # (AUTO) 0.2 K/uL (0.8-1.0); MONOCYTES % (AUTO) 2.8 % (1.7-9.3); NEUTROPHILS # (AUTO) 6.6 K/uL (1.8-7.7); PLATELET COUNT (AUTO) 228 K/uL (140-450); RED BLOOD CELL COUNT(AUTO) 3.42 MIL/uL (4.20-6.10); WHITE BLOOD COUNT (AUTO) 8.2 K/uL (4.8-10.8)
--- NOTE | 2017-04-24 07:15 | NUR ---
ENDORSED PLAN OF CARE TO AM NURSE. CONDITION STABLE.
--- NOTE | 2017-04-24 07:16 | NUR ---
RECEIVED REPORT FROM RISK PROFESSIONAL RN. PATIENT IS APHASIC. HE IS ON ROOM AIR AND HAS NO SIGN OR SYMPTOMS OF RESPIRATORY DISTRESS AT THE MOMENT. HE HAS A RIGHT HAND 20G IV INFUSING D5 AT 60ML/HR. SITE IS CLEAN, DRY, PATENT AND INTACT. HAS GT FEEDING DIABETIC SOURCE AT 60ML/HR. HAS A ADVIS CATHETER DRAINING TO GRAVITY. BED IS IN THE LOWEST POSITION, SIDERAILS UP X2, CALL LIGHT WITHIN REACH. WILL CONTINUE TO MONITOR.
[2017-04-24 07:21] LABS: MAGNESIUM 2.5 mg/dL (1.8-2.4); PHOSPHORUS 2.8 mg/dL (2.5-4.9)
[2017-04-24 08:00] VITALS: BP 105/59
[2017-04-24] MEDS: ALBUTEROL SULFATE/IPRATROPIU 3 ML SOL IH SCH ×2 (08:06→13:50)
[2017-04-24] MEDS: LISINOPRIL 10 MG TAB GT SCH (09:00)
[2017-04-24] MEDS: METOPROLOL 50 MG TAB GT SCH (09:00)
[2017-04-24] MEDS: LACTULOSE 20 GM/30 ML UDC GT SCH (10:00)
[2017-04-24] MEDS: BACLOFEN 10 MG TAB GT SCH (10:00)
[2017-04-24] MEDS: PANTOPRAZOLE 40 MG INJ VIAL IVP SCH (10:00)
[2017-04-24] MEDS: DOCUSATE 100 MG/10 ML UDC GT SCH (10:00)
[2017-04-24] MEDS: POLYVINYL ALCOHOL 1.4% OP 15 ML SOL OP SCH (10:01)
[2017-04-24] MEDS: LACTOBACILLUS RHAMNOSUS GG 1 EACH CAP GT SCH (10:01)
--- NOTE | 2017-04-24 11:10 | NUR ---
CM NOTE SPOKE W/ KOBI FROM [facility]; MADE AWARE OF PATIENT'S DISCHARGE ORDERS. PATIENT INFORMATION FAXED. PENDING ROOM NUMBER & TRANSPORT.
[2017-04-24 12:00] VITALS: BP 108/71
[2017-04-24] MEDS ORDERED: MEROPENEM 500 MG in NACL 0.9% 50 ML IV SCH (13:00)
[2017-04-24] MEDS ORDERED: LANTUS SC (15:18)
[2017-04-24] MEDS ORDERED: MER1I IV (15:18)
--- NOTE | 2017-04-24 15:22 | NUR ---
04/24/17 RD FOLLOW UP COMPLETED. 1.PT TO CONTINUE TO RECEIVE >90% EST KCAL AND PROTEIN NEEDS WITHIN 2-3 DAYS 2.NUTRITION RELATED LABS TO TREND WNL WITHIN 2-3 DAYS DISCHARGE PLAN:CURRENT DIET REFLECTS PAST MEDICAL HISTORY AND IS APPROPRIATE FOR DISCHARGE. IRISH CASTREJON RD
[2017-04-24] MEDS ORDERED: SIMV20TA6 GT (15:27)
[2017-04-24] MEDS ORDERED: LACT10CA GT (15:27)
--- NOTE | 2017-04-24 15:43 | NUR ---
CM NOTE PER KOBI, PATIENT'S MEDI-NANCY HAS BEEN RENEWED. PATIENT TO BE PICKED UP VIA GURNEY BY [facility] GOING TO [facility], RM 19B. ETA 1600. PAIGE LAUREN MADE AWARE. # FOR REPORT: [phone]
--- NOTE | 2017-04-24 16:20 | NUR ---
CALLED [facility] AND GAVE REPORT TO PABLO.
--- NOTE | 2017-04-24 16:30 | NUR ---
DISCHARGE ORDERS ARE IN PLACE. [facility] IS HERE TO TRANSPORT PATIENT BACK TO [facility]. PATIENT IS GOING TO ROOM 19B. PATIENT HAS GTUBE, WHICH HAS BEEN DISCONNECTED FROM THE FEEDING AND IS CLAMPED. PATIENT HAS DAVIS CATHETER THAT IS DRAINING TO GRAVITY. ALSO HAS IV TO THE RIGHT HAND 20G ON SALINE LOCK. DISCHARGE PACKET AND EDUCATION HAS BEEN PRINTED AND SENT WITH [facility]. MED REC IN THE PACKET. PATIENT IN STABLE CONDITION. [place] [facility].
[2017-04-24] MEDS ORDERED: INSULIN LANTUS 100 UNITS/ML 10 ML VIAL SUBQ SCH (21:00)
== END 2017-04-24 16:40 | DRG 177 ==
LOC: MED 04:33 → MIC 07:45 → MTU 04-22 11:10
PROVIDERS: ADMIT Family Medicine; ATTEND Family Medicine
DX: J69.0 Pneumonitis due to inhalation of food and vomit (principal); N17.0 Acute kidney failure with tubular necrosis; J96.21 Acute and chronic respiratory failure with hypoxia; E11.00 Type 2 diabetes mellitus with hyperosmolarity without nonketotic hyperglycemic-hyperosmolar coma (NKHHC); G82.50 Quadriplegia, unspecified; D68.59 Other primary thrombophilia; E83.41 Hypermagnesemia; N39.0 Urinary tract infection, site not specified; E87.2 Acidosis; E87.1 Hypo-osmolality and hyponatremia; N17.9 Acute kidney failure, unspecified; E86.0 Dehydration; I10 Essential (primary) hypertension; K21.9 Gastro-esophageal reflux disease without esophagitis; E78.5 Hyperlipidemia, unspecified; E87.8 Other disorders of electrolyte and fluid balance, not elsewhere classified; B96.20 Unspecified Escherichia coli [E. coli] as the cause of diseases classified elsewhere; D64.9 Anemia, unspecified; E86.9 Volume depletion, unspecified; E88.81 Metabolic syndrome and other insulin resistance; J44.9 Chronic obstructive pulmonary disease, unspecified; M19.90 Unspecified osteoarthritis, unspecified site; Z79.4 Long term (current) use of insulin; Z87.11 Personal history of peptic ulcer disease; Z93.1 Gastrostomy status
CPT/HCPCS: 36415; 36600; 71045; 80048; 80053; 80305; 81001; 82009; 82140; 82150; 82803; 82948; 83036; 83605; 83690; 83735; 83880; 84100; 84439; 84443; 84484; 85025; 85610; 85730; 87040; 87070; 87081; 87086; 87186; 87205; 87804; 89220; 93005; 93925; 93970; 94640; 96361; 96365; 96375; 99285; C9113; J1644; J1815; J1956; J2185; J2543; J3480; J3490; J7030; J7060; J7620; Q0092

== ENCOUNTER 2019-04-11 19:47 | Inpatient (IN) | payer MEDICAID ==
[~2019-04-11] VITALS: Ht 172.7 cm; Wt 88.9 kg
[2019-04-11] MEDS: NACL 0.9% 1,000 ML IV SCH (01:08)
[~2019-04-11 19:47] MED LIST changes: -CLON0.1T78 GT; -GLU1I IM; +GLUC1VIA IM; +LACT10CA GT; +SIMV-30 GT
--- NOTE | 2019-04-11 19:50 | NUR ---
PT LIVIA BLS. TAKEN TO BED 2
[2019-04-11 19:55] VITALS: BP 118/80
--- NOTE | 2019-04-11 20:12 | NUR ---
48 Y/O MALE BIBA FROM [facility]. SERVICE COUNSELOR STATES PT HAS FLU LIKE SYMPTOMS THAT STARTED 2 DAYS AGO AND WORSENING TODAY. PT HAS FEVER AT FACILITY, PER SERVICE COUNSELOR; PT'S TEMPT DURING ASSESSMENT IS 100.4 AXILLARY. PT NONVERBAL DURING ASSESSMENT. COUGHING NOTED; LUNG SOUNDS BILAT DIMINISHED, SPO2 AT 97% ROOM AIR. NO SOB/DIFFICULTY BREATHING NOTED. PT TACHYCARDIC. NO N/V, PER SERVICE COUNSELOR. PT PLACED ON MONITOR. ERMD AWARE. WILL CONTINUE TO MONITOR.
[2019-04-11] MEDS ORDERED: NACL 0.9% 2,500 ML IV ONE (20:20)
--- NOTE | 2019-04-11 20:39 | NUR ---
Respiratory Therapist at bedside
--- NOTE | 2019-04-11 20:41 | NUR ---
BLOOD DRAWN AND SENT TO LAB AT THIS TIME
--- NOTE | 2019-04-11 21:01 | NUR ---
XRAY AT BEDSIDE
[2019-04-11 21:14] LABS: BASOPHILS % (AUTO) 0.4 % (0.0-2.0); EOSINOPHILS % (AUTO) 0.1 % (0.0-4.0); HEMATOCRIT 39.3 % (36-52); HEMOGLOBIN 13.2 g/dL (12.0-18.0); LYMPHOCYTES # (AUTO) 0.3 K/uL (2.0-11.5); LYMPHOCYTES % (AUTO) 3.3 % (20.5-51.1); MEAN CORPUSCULAR HEMOGLOBIN 31 pg (27-31); MEAN CORPUSCULAR HGB CONC 34 g/dL (33-37); MEAN CORPUSCULAR VOLUME 92.5 fL (80-94); MONOCYTES # (AUTO) 0.7 K/uL (0.8-1.0); MONOCYTES % (AUTO) 7.5 % (1.7-9.3); NEUTROPHILS # (AUTO) 8.9 K/uL (1.8-7.7); NEUTROPHILS % (AUTO) 88.7 % (42.2-75.2); PLATELET COUNT (AUTO) 278 K/uL (140-450); RED BLOOD CELL COUNT(AUTO) 4.25 MIL/uL (4.20-6.10); RED CELL DISTRIBUTION WIDTH 14.1 % (11.6-13.7)
--- NOTE | 2019-04-11 21:14 | NUR ---
STRAIGHT CATH PERFORMED WITH STERILE TECHNIQUE. PT TOLERATED PROCEDURE. RECEIVED 85ML OF YELLOW CLOUDY URINE. URINE SPECIMEN COLLECTED AT THIS TIME.
[2019-04-11 21:36] LABS: PROTHROMBIN TIME 9.9 secs (10.8-13.4)
[2019-04-11 21:46] LABS: ALBUMIN 3.9 g/dL (3.4-5.0); ANION GAP 17.6 (8-16); CARBON DIOXIDE 22.6 mmol/L (21-32); CREATININE 0.8 mg/dL (0.7-1.3); POTASSIUM 4.2 mmol/L (3.5-5.1); TOTAL BILIRUBIN 0.7 mg/dL (0.0-1.0)
[2019-04-11 22:03] LABS: APPEARANCE,URINE CLOUDY (CLEAR); BILIRUBIN,URINE NEGATIVE (NEGATIVE); BLOOD, URINE NEGATIVE (NEGATIVE); COLOR,URINE YELLOW (YELLOW); LEUKOCYTE ESTERASE ,URINE NEGATIVE (NEGATIVE); NITRITE, URINE NEGATIVE (NEGATIVE); UGLUCOSE NEGATIVE (NEGATIVE)
[2019-04-11] MEDS ORDERED: MORPHINE SULFATE 2 MG/ML SYR IVP PRN (23:45)
[2019-04-11] MEDS ORDERED: ACETAMINOPHEN 325 MG TAB PO PRN (23:45)
[2019-04-11] MEDS ORDERED: HYDROcodone/APAP 5/325 MG 1 TAB TAB PO PRN (23:45)
[2019-04-11] MEDS ORDERED: DOCUSATE SODIUM 100 MG GELCAP PO PRN (23:45)
[2019-04-11] MEDS ORDERED: ONDANSETRON 4 MG/2 ML VIAL IM/IVP PRN (23:45)
[2019-04-12 00:55] VITALS: BP 122/70
--- NOTE | 2019-04-12 00:55 | NUR ---
RECIEVED PT /CATHERINE MORALES ER Elieser AAOX4 - APHASIA , RESPONSE BY FACIAL EXPRESSION AND HEAD NODDING . NID - O2 SAT WNL ,W/ O2 AT 2LPM/NC . FEBRILE . ON PLASTICS FABRICATOR OR WELDER -ST. QUARDRIPLEGIC , INCONTINENT . W/ G TUBE . TRANSFER TO BED BY MANUALLY BY 4 PERSON . ADM. ASSESSMENT DONE - MRSA SPECIMEN COLLECTED AND SENT TO LAB . PUT ON SAFETY / FALL PRECAUTION PROTOCOL- BED ALARM ON . POC DISCUSSED BUT POOR UNDERSTANDING DUE TO MENTAL STATUS. WILL CONT. TO MONITOR. Addendum: 04/12/19 at 0324 by Sydnie Matthews RN THE ABOVE NURSE'S NOTES AAOX4 IS AN ERROR ENTRY INSTEAD OF AAOX1 - KIM
--- NOTE | 2019-04-12 01:00 | NUR ---
PT ADMITTED TO [facility] RM 124B. TRANSFERRED PT VIA [facility] WITH HAYDEE EMT; STABLE CONDITION. REPORT GIVEN TO RECEIVING RN; TRANSFER OF CARE AT THIS TIME.
[2019-04-12] MEDS ORDERED: DEXTROSE 50% 50 ML SYR IVP PRN (01:15)
[2019-04-12] MEDS ORDERED: INSULIN LISPRO SLIDING SCALE 100 UNITS/ML VIAL SUBQ PRN (01:15)
[2019-04-12] MEDS ORDERED: METF-988 GT (01:30)
[2019-04-12] MEDS ORDERED: BACL10TA4 PO (01:30)
[2019-04-12] MEDS ORDERED: LANTUS SC (01:30)
[2019-04-12] MEDS ORDERED: FENO145T PO (01:30)
[2019-04-12] MEDS ORDERED: COL100L GT (01:30)
--- NOTE | 2019-04-12 02:00 | NUR ---
MADE ROUNDS . O2 SAT WNL . STILL FEBRILE - IVF INFUSING WELL - WILL CONT. TO MONITOR.
[2019-04-12] MEDS ORDERED: ALBUTEROL SULFATE/IPRATROPIU 3 ML SOL IH PRN (02:05)
[2019-04-12] MEDS ORDERED: BISACODYL 10 MG SUPP RC PRN (03:05)
[2019-04-12] MEDS ORDERED: MAGNESIUM HYDROXIDE 2400 MG/30 ML UDC GT PRN (03:05)
[2019-04-12 03:38] LABS: MAGNESIUM 1.8 mg/dL (1.8-2.4); PHOSPHORUS 2.6 mg/dL (2.5-4.9); THYROID STIMULATING HORMONE 1.98 uIU/mL (0.34-3.74)
[2019-04-12 04:00] VITALS: BP 120/70
--- NOTE | 2019-04-12 04:00 | NUR ---
INDUCED SPUTUM COLLECTION -DONE BY RT - PROCEDURE TOLERATED WELL - SPECIMEN SENT TO LAB BY RT . WILL CONT. TO MONITOR. O2 SAT WNL.
[2019-04-12] MEDS: BLOOD GLUCOSE MONITORING 1 DEV DEV FS SCH ×4 (05:14→20:22)
--- NOTE | 2019-04-12 06:20 | NUR ---
G TUBE FEEDING START 10/HR INITIALLY - WOF THE REACTION. ASPIRATED THE RESIDUE BEFORE THE FEEDING - 10CCML.
[2019-04-12 07:15] LABS: HEMATOCRIT 38.8 % (36-52); HEMOGLOBIN 12.9 g/dL (12.0-18.0); MEAN CORPUSCULAR HEMOGLOBIN 31 pg (27-31); MEAN CORPUSCULAR HGB CONC 33 g/dL (33-37); MEAN CORPUSCULAR VOLUME 93.2 fL (80-94); PLATELET COUNT (AUTO) 250 K/uL (140-450); RED BLOOD CELL COUNT(AUTO) 4.16 MIL/uL (4.20-6.10); RED CELL DISTRIBUTION WIDTH 14.1 % (11.6-13.7); WHITE BLOOD COUNT (AUTO) 12.3 K/uL (4.8-10.8)
--- NOTE | 2019-04-12 07:25 | NUR ---
DR. TONG CALL MADE NEW ORDER - INCREASE THE IVF TO 50CC /HR - ENDORSED TO LIV FOR CONT. OF CARE . PT -STABLE.
--- NOTE | 2019-04-12 07:30 | NUR ---
RECEIVED BEDSIDE REPORT FROM SPECIALTY THERAPIST NURSE FOR CONTINUITY OF CARE. PT AWAKE AND RESTING ON BED. PT IS AAOX1, APHASIC AND BEDBOUND. RESPIRATION EVEN AND UNLABORED ON 2LPM VIA NC. NO SIGNS OF DISTRESS NOTED. IV ON L HAND 22G, CLEAN AND INTACT, INFUSING NS AT 50 ML/HR. G-TUBE IN PLACE AND INFUSING AT 10 ML/HR GLUCERNA 1.2. SKIN CLEAN AND DRY. PT IS INCONTINENT. DROPLET PRECAUTION IN PLACE AND SIGN POSTED ON DOOR. TELE MONITOR ATTACHED. SAFETY MEASURES IN PLACE. FALL RISK PRECAUTION IN PLACE. BED IN LOW POSITION AND CALL LIGHT WITHIN REACH.
[2019-04-12] MEDS: ALBUTEROL SULFATE/IPRATROPIU 3 ML SOL IH SCH ×3 (07:33→20:10)
[2019-04-12 07:35] LABS: ANION GAP 18.8 (8-16); CARBON DIOXIDE 21.3 mmol/L (21-32); CREATININE 0.8 mg/dL (0.7-1.3); MAGNESIUM 1.7 mg/dL (1.8-2.4); POTASSIUM 4.1 mmol/L (3.5-5.1)
[2019-04-12 08:00] VITALS: BP 123/66
[2019-04-12 08:12] LABS: LYMPHOCYTES % (MANUAL) 9 % (20-46); MONOCYTES % (MANUAL) 9 % (5-12)
[2019-04-12 08:43] LABS: PHOSPHORUS 2.3 mg/dL (2.5-4.9)
[2019-04-12] MEDS ORDERED: metFORMIN 500 MG TAB GT SCH (09:00)
--- NOTE | 2019-04-12 09:50 | NUR ---
CHECKED PT'S TEMP AND RECEIVED 100.6 TEMPORAL, APPLIED ICE PACK ON FOREHEAD AND WILL REASSESS TEMP SHORTLY. CHECKED G-TUBE RESIDUAL AND RECEIVED < 5 ML, INCREASED G-TUBE FEEDING TO 30 ML/HR. PT AWAKE AND RESTING ON BED. FLACC 0. RESPIRATION EVEN AND UNLABORED ON 2LPM VIA NC, SPO2 AT 96%. TELE MONITOR ATTACHED. SAFETY MEASURES IN PLACE.
[2019-04-12 09:54] LABS: CHOL/HDL RATIO 2.4 (1-4.5)
[2019-04-12] MEDS: POLYVINYL ALCOHOL 1.4% OP 15 ML SOL BOTH EYES SCH ×2 (10:27→20:22)
[2019-04-12] MEDS: DOCUSATE 100 MG/10 ML UDC GT SCH ×2 (10:27→20:20)
[2019-04-12] MEDS: OSELTAMIVIR PHOSPHATE 75 MG CAP GT SCH ×2 (10:28→20:20)
[2019-04-12] MEDS: FAMOTIDINE 20 MG TAB GT SCH ×2 (10:28→20:20)
[2019-04-12] MEDS: METOPROLOL 50 MG TAB GT SCH ×2 (10:28→20:20)
[2019-04-12] MEDS: LISINOPRIL 10 MG TAB GT SCH (10:29)
[2019-04-12] MEDS: FENOFIBRATE 48 MG TAB GT SCH (10:29)
[2019-04-12] MEDS ORDERED: CRUSHER, PILL MC ONE (10:33)
[2019-04-12] MEDS: BACLOFEN 10 MG TAB GT SCH ×2 (10:37→20:20)
--- NOTE | 2019-04-12 10:38 | NUR ---
CHECKED BP AND RECEIVED 135/85 PULSE 133. CHECKED G-TUBE RESIDUAL AND RECEIVED < 5 ML, FLUSHED BEFORE AND AFTER MEDS ADMINISTER, MEDS ED PROVIDED TO PT AND REINFORCEMENT NEEDED. PT TOLERATED MEDS WELL. FLACC 0. RESPIRATION EVEN AND UNLABORED ON 2LPM VIA NC, SPO2 AT 97%. INTERMITTENT COUGHS NOTED. TELE MONITOR ATTACHED. NO SIGNS OF DISTRESS NOTED. SAFETY MEASURES IN PLACE. BED IN LOW POSITION AND CALL LIGHT WITHIN REACH.
--- NOTE | 2019-04-12 10:45 | NUR ---
RECHECKED PT'S TEMP ORALLY AND RECEIVED 98.5. FLACC 0. NO SIGNS OF DISTRESS NOTED. TELE MONITOR ATTACHED. SAFETY MEASURES IN PLACE.
--- NOTE | 2019-04-12 11:48 | NUR ---
ASSISTED SENIOR VICE PRESIDENT AND CHIEF INFORMATION OFFICER TO REPOSITION AND TURN PT, PT TOLERATED WELL. NO SIGNS OF DISTRESS NOTED. TELE MONITOR ATTACHED. SAFETY MEASURES IN PLACE. BED IN LOW POSITION AND CALL LIGHT WITHIN REACH. BED ALARM ACTIVATED.
[2019-04-12 12:00] VITALS: BP 103/64
--- NOTE | 2019-04-12 13:45 | NUR ---
PT IS RESTING ON BED WITH EYES OPEN. . FLACC 0. RESPIRATION EVEN AND UNLABORED ON 2LPM VIA NC, SOP2 AT 98% AT THIS TIME. NO SIGNS OF DISTRESS NOTED. TELE MONITOR ATTACHED. SAFETY MEASURES IN PLACE. BED IN LOW POSITION AND CALL LIGHT WITHIN REACH. BED ALARM ACTIVATED.
--- NOTE | 2019-04-12 15:22 | NUR ---
CALLED [facility] [place] AND SPOKE WITH DYLAN FOR PT'S VACCINATION STATUS. PER DYLAN, PT RECEIVED FLU VACCINE 10/03/2018 AND RECEIVED PNA VACCINE ON 12/05/2017.
[2019-04-12] MEDS ORDERED: SODIUM PHOSPHATE 118 ML ENEM RC SCH (15:30)
--- NOTE | 2019-04-12 15:33 | NUR ---
PT IS RESTING ON BED AT THIS TIME AND EYES OPEN VOICE. RESPIRATION EVEN AND UNLABORED ON 2LPM VIA NC, SPO2 AT 98%. FLACC 0. NO SIGNS OF DISTRESS NOTED. TELE MONITOR ATTACHED. SAFETY MEASURES IN PLACE. BED ALARM ACTIVATED.
[2019-04-12] MEDS ORDERED: MAG SULF 2000 MG/WATER PREMIX 50 ML IV ONE (15:40)
--- NOTE | 2019-04-12 15:55 | NUR ---
RADIOLOGY TECHNICIANS ARE TAKING CHEST X-RAY BY BEDSIDE. NO SIGNS OF DISTRESS NOTED. TELE MONITOR ATTACHED. SAFETY MEASURES IN PLACE.
[2019-04-12 16:00] VITALS: BP 102/69
--- NOTE | 2019-04-12 16:09 | NUR ---
WITH ASSIST FROM ANOTHER RN, ADMINISTERED ENEMA, PT TOLERATED WELL. ADMINISTERED MAG SULFATE FOR LOW MAG 1.7 FROM AM LAB, MED ED PROVIDED AND REINFORCEMENT NEEDED. PT AWAKE AND RESTING ON BED AT THIS TIME. INTERMITTENT COUGHS NOTED. SPO2 AT 97% WITH 2LPM VIA NC. FLACC 0. NO SIGNS OF DISTRESS NOTED. TELE MONITOR ATTACHED. SAFETY MEASURES IN PLACE. BED ALARM ACTIVATED.
[2019-04-12] MEDS: metFORMIN 500 MG TAB GT SCH (17:05)
--- NOTE | 2019-04-12 17:07 | NUR ---
ADMINISTERED SCHEDULE MED PER MD ORDER AND 2 UNITS OF HUMALOG SUBQ FOR GLUCOSE 151, CHECKED G-TUBE RESIDUAL AND RECEIVED 5 ML, FLUSHED BEFORE AND AFTER MED ADMINISTER, PT TOLERATED WELL. PT AWAKE AND RESTING ON BED WITH EYES OPEN. FLACC 0, SPO2 AT 97% ON 2LM VIA NC. NO SIGNS OF DISTRESS NOTED. TELE MONITOR ATTACHED. SAFETY MEASURES IN PLACE.
--- NOTE | 2019-04-12 17:42 | NUR ---
ASSISTED CODE CLERK TO REPOSITION AND CLEAN PT, PT HAS ONE MEDIUM SOFT BROWN BM. PT TOLERATED WELL. NO SIGNS OF DISTRESS NOTED. TELE MONITOR ATTACHED. SAFETY MEASURES IN PLACE.
[2019-04-12] MEDS: NACL 0.9% 1,000 ML IV SCH (18:31)
--- NOTE | 2019-04-12 19:18 | NUR ---
ENDORSED PT AT BEDSIDE TO INDEPENDENT LIVING ADVISOR NURSE FOR CONTINUITY OF CARE. PT IS RESTING ON BED WITH 2LPM VIA NC, SPO2 AT 96%. FLACC 0. NO SIGNS OF DISTRESS NOTED. TELE MONITOR ATTACHED. PT IS IN STABLE CONDITION. SAFETY MEASURES IN PLACE.
--- NOTE | 2019-04-12 19:19 | NUR ---
RECEIVED BEDSIDE REPORT FROM DAY SHIFT NURSELIV FOR CONTINUITY OF CARE. PT AWAKE AND RESTING ON BED. PT IS AAOX1, APHASIC AND BEDBOUND. RESPIRATION EVEN AND UNLABORED ON 2LPM VIA NC. NO SIGNS OF DISTRESS NOTED. IV ON L HAND 22G, CLEAN AND INTACT, INFUSING NS AT 50 ML/HR. G-TUBE IN PLACE AND INFUSING AT 50 ML/HR GLUCERNA 1.2. SKIN CLEAN AND DRY. PT IS INCONTINENT. DROPLET PRECAUTION IN PLACE AND SIGN POSTED ON DOOR. TELE MONITOR ATTACHED. SAFETY MEASURES IN PLACE. FALL RISK PRECAUTION IN PLACE. BED IN LOW POSITION AND CALL LIGHT WITHIN REACH.
[2019-04-12 20:00] VITALS: BP 112/72
[2019-04-12] MEDS: SODIUM PHOS / POTASSIUM PHOS 1 PKT PDR PO SCH (20:20)
[2019-04-12] MEDS: INSULIN LANTUS 100 UNITS/ML 10 ML VIAL SUBQ SCH (20:29)
--- NOTE | 2019-04-12 20:29 | NUR ---
CHECKED RESIDUAL, 50ML NOTED, GIVEN ARTIFICIAL TEAR, COLACE, BACLOFEN, METOPROLOL, PEPCID, TAMIFLU, NEUTRA-PHOS, HEPARIN MD ORDERED. PT HAD FEVER, 101.2. GIVEN TYLENOL AND APPLIED ICE PACKS ON FOREHEAD AND SHOULDER. PT TOLERATED WELL.
[2019-04-13] VITALS: BP 77/46
[2019-04-13] MEDS ORDERED: NACL 0.9% 1,000 ML IV ONE
[2019-04-13] MEDS ORDERED: NACL 0.9% 500 ML IV ONE
[2019-04-13] MEDS ORDERED: PIPERACILLIN/TAZOBACTAM 3.375 GM VIAL IV ONE (00:08)
--- NOTE | 2019-04-13 00:10 | NUR ---
VS CHECKED, BP 77/46 NOTED, REPORTED DRElieser RECEIVED BOLUS ORDER. GIVEN BOLUS FLUID DRElieser ORDER. PT TOLERATED WELL.
[2019-04-13] MEDS: PIPERACILLIN/TAZOBACTAM 3.375 GM in DEXTROSE 5% 50 ML IV SCH ×3 (00:50→17:28)
--- NOTE | 2019-04-13 01:15 | NUR ---
CHECKED BP, 90/55. WILL CONTINUE TO MONITOR.
--- NOTE | 2019-04-13 03:55 | NUR ---
VS CHECKED, BP 88/55. WILL CONTINUE TO MONITOR.
[2019-04-13 04:00] VITALS: BP 88/52
[2019-04-13 06:38] LABS: BASOPHILS % (AUTO) 0.2 % (0.0-2.0); EOSINOPHILS % (AUTO) 0.3 % (0.0-4.0); HEMATOCRIT 34.3 % (36-52); HEMOGLOBIN 11.4 g/dL (12.0-18.0); LYMPHOCYTES # (AUTO) 1.4 K/uL (2.0-11.5); LYMPHOCYTES % (AUTO) 16.2 % (20.5-51.1); MEAN CORPUSCULAR HEMOGLOBIN 31 pg (27-31); MEAN CORPUSCULAR HGB CONC 33 g/dL (33-37); MEAN CORPUSCULAR VOLUME 93.9 fL (80-94); MONOCYTES % (AUTO) 11.4 % (1.7-9.3); NEUTROPHILS # (AUTO) 6.1 K/uL (1.8-7.7); NEUTROPHILS % (AUTO) 71.9 % (42.2-75.2); PLATELET COUNT (AUTO) 214 K/uL (140-450); RED BLOOD CELL COUNT(AUTO) 3.65 MIL/uL (4.20-6.10); RED CELL DISTRIBUTION WIDTH 14.4 % (11.6-13.7); WHITE BLOOD COUNT (AUTO) 8.5 K/uL (4.8-10.8)
[2019-04-13] MEDS: BLOOD GLUCOSE MONITORING 1 DEV DEV FS SCH ×4 (06:49→20:57)
[2019-04-13 07:07] LABS: ANION GAP 13.3 (8-16); CARBON DIOXIDE 23.7 mmol/L (21-32); CREATININE 0.8 mg/dL (0.7-1.3)
--- NOTE | 2019-04-13 07:15 | NUR ---
RECEIVED BEDSIDE REPORT FROM LAUNDRY AIDE NURSE FOR CONTINUITY OF CARE. PT IS RESTING ON BED. PT IS AAOX1, APHASIC AND BEDBOUND. RESPIRATION EVEN AND UNLABORED ON 2LPM VIA NC, SPO2 AT 97%. NO SIGNS OF DISTRESS NOTED. IV ON L HAND 22G, CLEAN AND INTACT, INFUSING NS AT 50 ML/HR. G-TUBE IN PLACE AND INFUSING AT 10 ML/HR GLUCERNA 1.2. SKIN CLEAN AND DRY. PT IS INCONTINENT. DROPLET PRECAUTION IN PLACE AND SIGN POSTED ON DOOR. TELE MONITOR ATTACHED. SAFETY MEASURES IN PLACE. FALL RISK PRECAUTION IN PLACE. BED IN LOW POSITION AND CALL LIGHT WITHIN REACH.
[2019-04-13 07:24] LABS: MAGNESIUM 2.1 mg/dL (1.8-2.4); PHOSPHORUS 1.7 mg/dL (2.5-4.9)
[2019-04-13 08:00] VITALS: BP 91/63
[2019-04-13] MEDS: ALBUTEROL SULFATE/IPRATROPIU 3 ML SOL IH SCH ×3 (08:35→20:11)
[2019-04-13] MEDS: LISINOPRIL 10 MG TAB GT SCH (09:00)
[2019-04-13] MEDS: METOPROLOL 50 MG TAB GT SCH ×2 (09:00→21:00)
[2019-04-13] MEDS: DOCUSATE 100 MG/10 ML UDC GT SCH ×2 (10:00→20:57)
[2019-04-13] MEDS: metFORMIN 500 MG TAB GT SCH ×2 (10:00→16:54)
[2019-04-13] MEDS: POLYVINYL ALCOHOL 1.4% OP 15 ML SOL BOTH EYES SCH ×2 (10:01→20:57)
[2019-04-13] MEDS: BACLOFEN 10 MG TAB GT SCH ×2 (10:01→20:57)
[2019-04-13] MEDS: FAMOTIDINE 20 MG TAB GT SCH ×2 (10:01→20:57)
[2019-04-13] MEDS: FENOFIBRATE 48 MG TAB GT SCH (10:01)
[2019-04-13] MEDS: SODIUM PHOS / POTASSIUM PHOS 1 PKT PDR PO SCH (10:02)
[2019-04-13] MEDS: OSELTAMIVIR PHOSPHATE 75 MG CAP GT SCH ×2 (10:02→20:58)
--- NOTE | 2019-04-13 10:10 | NUR ---
CHECKED G-TUBE RESIDUAL AND RECEIVED < 5 ML AND CHECKED BP 97/61 PULSE 109, REPORTED TO DR FRANCO. PER DR FRANCO, HOLD AM BP MEDS. ADMINISTERED AM SCHEDULED MEDS VIA G-TUBE, MEDS ED PROVIDED TO PT AND REINFORCEMENT NEEDED. PT TOLERATED WELL. PT AWAKE AND RESTING ON BED. DR LINDSAY IS ASSESSING PT AT BEDSIDE. NO SIGNS OF DISTRESS NOTED. TELE MONITOR ATTACHED. SAFETY MEASURES IN PLACE.
--- NOTE | 2019-04-13 10:13 | NUR ---
PATIENT HAS BEEN SCREENED AND CATEGORIZED HIGH NUTRITION RISK. PATIENT WILL BE SEEN WITHIN 1-2 DAYS OF ADMISSION. 04/13/[address]
--- NOTE | 2019-04-13 11:21 | NUR ---
PT AWAKE AND RESTING ON BED WITH EYES OPEN. RESPIRATION EVEN AND UNLABORED WITH ALPM VIA NC. FLACC 0. NO SIGNS OF DISTRESS NOTED. TELE MONITOR ATTACHED. SAFETY MEASURES IN PLACE. BED ALARM ACTIVATED. AWAITING FOR PHARMACY TO DELIVER THE 0900 DOSE ZOSYN.
--- NOTE | 2019-04-13 11:38 | NUR ---
ADMINISTERED ZOSYN VIA IVPB PER MD ORDER, MED ED PROVIDED TO PT AND REINFORCEMENT NEEDED. PT AWAKE AND SITTING UP ON BED. NO SIGNS OF DISTRESS NOTED. TELE MONITOR ATTACHED. SAFETY MEASURES IN PLACE. BED ALARM ACTIVATED.
[2019-04-13 12:00] VITALS: BP 99/63
--- NOTE | 2019-04-13 13:20 | NUR ---
PT IS RESTING ON BED. RESPIRATION EVEN AND UNLABORED, SPO2 AT 96%. FLACC 0. NO SIGNS OF DISTRESS NOTED. TELE MONITOR ATTACHED. SAFETY MEASURES IN PLACE.
[2019-04-13 16:00] VITALS: BP 105/62
[2019-04-13] MEDS ORDERED: SODIUM PHOS / POTASSIUM PHOS 1 PKT PDR PO SCH (16:00)
[2019-04-13] MEDS: NACL 0.9% 1,000 ML IV SCH (16:55)
--- NOTE | 2019-04-13 16:55 | NUR ---
CHECKED G-TUBE RESIDUAL AND RECEIVED < 5 ML. ADMINISTERED SCHEDULED MEDS VIA G-TUBE, FLUSHED BEFORE AND AFTER MEDS ADMINISTERED, MED ED PROVIDED TO PT AND REINFORCEMENT NEEDED. PT AWAKE WITH EYES OPEN AND RESTING ON BED. NO SIGNS OF DISTRESS NOTED. TELE MONITOR ATTACHED. SAFETY MEASURES IN PLACE.
--- NOTE | 2019-04-13 17:28 | NUR ---
ADMINISTERED ZOSYN VIA IVPB PER MD ORDER, MED ED PROVIDED AND REINFORCEMENT NEEDED. PT AWAKE AND RESTING ON BED AT THIS TIME. FLACC 0. RESPIRATION EVEN AND UNLABORED ON RA, SPO2 AT 95%. NO SIGNS OF DISTRESS NOTED. TELE MONITOR ATTACHED. SAFETY MEASURES IN PLACE.
--- NOTE | 2019-04-13 17:42 | NUR ---
04/13/19 RD INITIAL ASSESSMENT COMPLETED PLEASE REFER TO NUTRITION ASSESSMENT UNDER CARE ACTIVITY FOR ESTIMATED NUTRITIONAL NEEDS. 1. RECOMMEND GLUCERNA 1.2 @ 60 ML/HR -THIS WILL PROVIDE 1440 ML IN VOLUME, 1728 KCALS, AND 86 GM OF PROTEIN. THIS MEETS >100 % OF PTS CALORIC NEEDS AND 98% OF PRO NEEDS. 2. RECOMMEND FREE WATER FLUSH OF [address] TO FOLLOW-UP 2-3 DAYS, HIGH RISK TIA ALEJANDRO RD
--- NOTE | 2019-04-13 19:18 | NUR ---
ENDORSED PT AT BEDSIDE TO CASH APPLICATIONS REPRESENTATIVE NURSE FOR CONTINUITY OF CARE. PT IS RESTING ON BED AND AROUSABLE TO VOICE. RESPIRATION EVEN AND UNLABORED ON RA, SPO2 AT 96%. FLACC 0. NO SIGNS OF DISTRESS NOTED. TELE MONITOR ATTACHED. PT IS IN STABLE CONDITION. SAFETY MEASURES IN PLACE.
--- NOTE | 2019-04-13 19:19 | NUR ---
RECEIVED BEDSIDE REPORT FROM DAY SHIFT NURSELIV FOR CONTINUITY OF CARE. PT AWAKE AND RESTING ON BED. PT IS AAOX1, APHASIC AND BEDBOUND. RESPIRATION EVEN AND UNLABORED ON ROOM AIR. NO SIGNS OF DISTRESS NOTED. IV ON L HAND 22G, CLEAN AND INTACT, INFUSING NS AT 50 ML/HR. G-TUBE IN PLACE AND INFUSING AT 60 ML/HR GLUCERNA 1.2. SKIN CLEAN AND DRY. PT IS INCONTINENT. DROPLET PRECAUTION IN PLACE AND SIGN POSTED ON DOOR. TELE MONITOR ATTACHED. SAFETY MEASURES IN PLACE. FALL RISK PRECAUTION IN PLACE. BED IN LOW POSITION AND CALL LIGHT WITHIN REACH.
[2019-04-13 20:00] VITALS: BP_SYST 103; BP_SYST 95; BP_DIAS 55; BP_DIAS 63
--- NOTE | 2019-04-13 20:21 | NUR ---
RECEIVED PATIENT ON ROOM AIR, PULSE OX SAT 96%. SCHEDULED BREATHING TREATMENT ADMINISTERED. TOLERATED WELL WITHOUT ADVERSE SIDE EFFECTS. NO ACUTE RESPIRATORY DISTRESS NOTED. WILL CONTINUE TO MONITOR.
[2019-04-13] MEDS: INSULIN LANTUS 100 UNITS/ML 10 ML VIAL SUBQ SCH (21:02)
--- NOTE | 2019-04-13 21:02 | NUR ---
CHECKED RESIDUAL, 5ML NOTED, GIVEN ARTIFICIAL TEAR, COLACE, BACLOFEN, PEPCID, TAMIFLU, HEPARIN MD ORDERED. HELD METOPROLOL D/T DECREASED BP, 95/55. PT TOLERATED WELL.
--- NOTE | 2019-04-13 23:50 | NUR ---
VS CHECKED, WITHIN PT'S BASELINE. BED IN LOW POSITION. WILL CONTINUE TO MONITOR.
[2019-04-14] VITALS: BP 103/63
[2019-04-14] MEDS: PIPERACILLIN/TAZOBACTAM 3.375 GM in DEXTROSE 5% 50 ML IV SCH ×3 (01:06→17:22)
--- NOTE | 2019-04-14 01:06 | NUR ---
GIVEN ZOSYN MD ORDERED. PT TOLERATED WELL.
--- NOTE | 2019-04-14 03:00 | NUR ---
GTUBE FORMULA DONE. 0 RESIDUAL NOTED. CHANGED FORMULA. PT TOLERATED WELL.
[2019-04-14 04:00] VITALS: BP 97/56
--- NOTE | 2019-04-14 04:05 | NUR ---
VS CHECKED, WITHIN PT'S BASELINE. WILL CONTINUE TO MONITOR.
[2019-04-14 05:52] LABS: ANION GAP 10.6 (8-16); CARBON DIOXIDE 27.3 mmol/L (21-32); CREATININE 0.7 mg/dL (0.7-1.3); POTASSIUM 3.9 mmol/L (3.5-5.1)
[2019-04-14 05:57] LABS: MAGNESIUM 1.8 mg/dL (1.8-2.4); PHOSPHORUS 1.5 mg/dL (2.5-4.9)
[2019-04-14 06:00] LABS: BASOPHILS % (AUTO) 0.5 % (0.0-2.0); EOSINOPHILS % (AUTO) 0.2 % (0.0-4.0); HEMATOCRIT 31.4 % (36-52); HEMOGLOBIN 11.2 g/dL (12.0-18.0); LYMPHOCYTES # (AUTO) 1.2 K/uL (2.0-11.5); LYMPHOCYTES % (AUTO) 19.3 % (20.5-51.1); MEAN CORPUSCULAR HEMOGLOBIN 33 pg (27-31); MEAN CORPUSCULAR HGB CONC 36 g/dL (33-37); MEAN CORPUSCULAR VOLUME 92.4 fL (80-94); MONOCYTES # (AUTO) 0.6 K/uL (0.8-1.0); MONOCYTES % (AUTO) 9.2 % (1.7-9.3); NEUTROPHILS # (AUTO) 4.6 K/uL (1.8-7.7); NEUTROPHILS % (AUTO) 70.8 % (42.2-75.2); PLATELET COUNT (AUTO) 246 K/uL (140-450); RED CELL DISTRIBUTION WIDTH 14.5 % (11.6-13.7); WHITE BLOOD COUNT (AUTO) 6.5 K/uL (4.8-10.8)
[2019-04-14] MEDS: BLOOD GLUCOSE MONITORING 1 DEV DEV FS SCH ×4 (06:08→20:39)
--- NOTE | 2019-04-14 06:09 | NUR ---
BS CHECKED, 137. NO INSULIN COVERAGE NEEDED. PT IN STABLE CONDITION.
--- NOTE | 2019-04-14 07:30 | NUR ---
RECEIVED PT FROM FIELD AIDE NURSE, JEANETH, PT IS AWAKE AND LYING ON THE BED WITH SIDE RAILS UP AND CALL LIGHT WITHIN REACH, PERIPHERAL LINE ON THE LEFT HAND G. 22 WITH NS INFUSING AT 50ML/HER, INTACT, G-TUBE IN PLACE WITH CONTINUOS FEEDING OF GLUCERNA 1.2 AT 60ML/HR WITH WATER FLUSH OF 140 ML/HR Q6HR, ON ROOM AIR AND NON-VERBAL BUT ALERT AND NO SIGN OF DISTRESS NOTED. WILL CONTINUE TO MONITOR PT.
[2019-04-14 08:00] VITALS: BP 111/75
[2019-04-14] MEDS: ALBUTEROL SULFATE/IPRATROPIU 3 ML SOL IH SCH ×3 (08:05→20:57)
[2019-04-14] MEDS: LISINOPRIL 10 MG TAB GT SCH (09:00)
[2019-04-14] MEDS: METOPROLOL 50 MG TAB GT SCH ×2 (09:00→20:30)
[2019-04-14] MEDS ORDERED: SODIUM PHOS / POTASSIUM PHOS 1 PKT PDR GT SCH (09:23)
--- NOTE | 2019-04-14 10:08 | NUR ---
PT IS AWAKE AND CHEST X-RAY WAS BEING DONE NOW.
[2019-04-14] MEDS: DOCUSATE 100 MG/10 ML UDC GT SCH ×2 (10:14→20:30)
--- NOTE | 2019-04-14 10:15 | NUR ---
PT IS AWAKE AND SCHEDULED AM MEDICATIONS WERE GIVEN VIA G- TUBE, RESIDUAL NOTED IS 20ML, IVPB MEDICATION WA ALSO ADMINISTERED, BP MEDICATIONS WERE HELD OFF BP IS 113/80, PULSE IS99 AND MD WAS INFORMED. PT WAS KEPT COMFORTABLE AND REPOSITIONED. WILL MONITOR PT
[2019-04-14] MEDS: POLYVINYL ALCOHOL 1.4% OP 15 ML SOL BOTH EYES SCH ×2 (10:17→20:39)
[2019-04-14] MEDS: FENOFIBRATE 48 MG TAB GT SCH (10:17)
[2019-04-14] MEDS: OSELTAMIVIR PHOSPHATE 75 MG CAP GT SCH ×2 (10:18→20:30)
[2019-04-14] MEDS: FAMOTIDINE 20 MG TAB GT SCH ×2 (10:18→20:30)
[2019-04-14] MEDS: BACLOFEN 10 MG TAB GT SCH ×2 (10:18→20:30)
[2019-04-14] MEDS: metFORMIN 500 MG TAB GT SCH ×2 (10:26→17:22)
[2019-04-14] MEDS: NACL 0.9% 1,000 ML IV SCH (10:27)
--- NOTE | 2019-04-14 11:38 | NUR ---
DC PLANN[age] YRS OLD PATIENT WAS ADMITTED FROM [facility] WITH A DX OF INFLUENZA . PT HAS A HX OF RESP FAILURE WITH TRACHEOSTOMY , HTN, CHF DM AND APHASIA. C XR NO ACUTE CARDIOPULMONARY DISEASE , BLOOD, URINE AND SPUTUM CULTURE PENDING RT PROTOCOL INITEATED ,STARTED TAMIFLU 75 MG G-TUBE.CONTINUE HOME MEDS, SEEN BY PULMO DR ABREU ORDERED TO CONTINUE TAMIFLU AND ZOSYN IV ABX. DC PLAN TO GO BACK TO [facility] WHEN STABLE. CM TO FOLLOW Addendum: 04/15/19 at 1546 by Mirela Maldonado CM DC PLANNING: FAXED ALL PAPER WORK TO [facility] ,WAITING FOR BED NUMBER CM TO FOLLOW Addendum: 04/15/19 at 1636 by Mirela Maldonado DC PLANNING: PATIENT IS ACCEPTED AT [facility] CAN GO TO ROOM 19B ARRANGED TRANSPORT WITH [employer] [facility]ULATOR TIME 7PM. [facility] TO [facility] Addendum: 04/15/19 at 1638 by Mirela Maldonado ACCEPTING DR SOTO # TO GIVE REPORT [phone]
[2019-04-14 12:00] VITALS: BP 100/60
--- NOTE | 2019-04-14 12:08 | NUR ---
BLOOD GLUCOSE CHECK DONE AND RESULT IS 138 AND NO INSULIN COVERAGE NEEDED.
--- NOTE | 2019-04-14 15:20 | NUR ---
BLOOD GLUCOSE CHECK DONE AND RESULT IS 109, NO INSULIN COVERAGE NEEDED. WILL MONITOR PT.
[2019-04-14 16:00] VITALS: BP 100/56
--- NOTE | 2019-04-14 17:22 | NUR ---
PT WAS GIVEN IV ZOSYN VIA PIGGYBACK AND METFORMIN VIA G-TUBE, RESIDUAL IS 20ML. WILL MONITOR PT.
[2019-04-14 20:00] VITALS: BP 118/79
--- NOTE | 2019-04-14 20:00 | NUR ---
PATIENT IS IN STABLE CONDITION. TELE PATIENT. RESPIRATIONS EVEN, UNLABORED. CONTINUES ON DROPLET ISOLATION PRECAUTIONS FOR INFLUENZA. ISOLATION PRECAUTIONS OBSERVED BY ALL STAFF. IV SITE TO LEFT HAND, 22G PATENT/INTACT. FLUIDS INFUSING WELL. NO S/SX PAIN. NO S/SX ACUTE DISTRESS AT THIS TIME. CALL LIGHT WITHIN REACH. WILL CONTINUE TO MONITOR.
[2019-04-14] MEDS: INSULIN LANTUS 100 UNITS/ML 10 ML VIAL SUBQ SCH (21:00)
--- NOTE | 2019-04-14 21:03 | NUR ---
RECEIVED PT ON ROOM AIR WITH SP02 OF 98% AND A COARSE BREATH SOUNDS ON THE UPPER LOBES. NO RESPIRATORY DISTRESS NOTED AT THIS TIME. HHN TX GIVEN ORDERED WITH NO ADVERSE REACTION. WILL CONTINUE TO MONITOR PT.
--- NOTE | 2019-04-14 22:40 | NUR ---
PATIENT CONTINUES IN STABLE CONDITION. DUE MEDS GIVEN ORDERED. CONTINUES ON ENTERAL FEEDING, TOLERATING WELL. MINIMAL RESIDUAL NOTED. INCONTINENT CARE PROVIDED BY STAFF. ALL OTHER NEEDS ANTICIPATED AND MET. NO S/SX PAIN. NO S/SX ACUTE DISTRESS. CALL LIGHT WITHIN REACH. WILL CONTINUE TO MONITOR.
[2019-04-15] VITALS: BP 98/67
--- NOTE | 2019-04-15 00:34 | NUR ---
IV SITE 22G TO LEFT HAND INFILTRATED. REMOVED IV WITH CANNULA INTACT. NO BLEEDING NOTED. NEW SITE TO RIGHT HAND 24G INSERTED ASEPTICALLY WITH GOOD BLOOD RETURN. FLUSHES WELL. CONTINUE WITH IV FLUIDS ORDERED. NO S/SX PAIN TO SITE. NO S/SX ACUTE DISTRESS NOTED. CALL LIGHT WITHIN REACH. WILL CONTINUE TO MONITOR.
[2019-04-15] MEDS: PIPERACILLIN/TAZOBACTAM 3.375 GM in DEXTROSE 5% 50 ML IV SCH ×3 (00:39→17:13)
--- NOTE | 2019-04-15 02:02 | NUR ---
PATIENT IN STABLE CONDITION. HOB 30 DEGREES. CONTINUES ON ENTERAL FEEDING, TOLERATING WELL. NO S/SX PAIN. NO S/SX ACUTE DISTRESS. CALL LIGHT WITHIN REACH. WILL CONTINUE TO MONITOR.
[2019-04-15 04:00] VITALS: BP 103/68
--- NOTE | 2019-04-15 04:36 | NUR ---
MADE ROUNDS. PATIENT CONTINUES IN STABLE CONDITION. ISOLATION PRECAUTIONS OBSERVED BY ALL STAFF. NO S/SX PAIN. NO S/SX ACUTE DISTRESS. CALL LIGHT WITHIN REACH. WILL CONTINUE TO MONITOR.
[2019-04-15 06:16] LABS: ANION GAP 12.2 (8-16); CARBON DIOXIDE 26.4 mmol/L (21-32); CREATININE 0.7 mg/dL (0.7-1.3); POTASSIUM 3.6 mmol/L (3.5-5.1)
--- NOTE | 2019-04-15 06:16 | NUR ---
PATIENT CONTINUES IN STABLE CONDITION. NO S/SX PAIN. NO S/SX ACUTE DISTRESS. CALL LIGHT WITHIN REACH. WILL CONTINUE TO MONITOR.
[2019-04-15 06:22] LABS: BASOPHILS % (AUTO) 0.6 % (0.0-2.0); EOSINOPHILS % (AUTO) 0.7 % (0.0-4.0); HEMATOCRIT 33.3 % (36-52); HEMOGLOBIN 11.5 g/dL (12.0-18.0); LYMPHOCYTES # (AUTO) 2.4 K/uL (2.0-11.5); MEAN CORPUSCULAR HEMOGLOBIN 32 pg (27-31); MEAN CORPUSCULAR HGB CONC 35 g/dL (33-37); MEAN CORPUSCULAR VOLUME 92.4 fL (80-94); MONOCYTES # (AUTO) 0.6 K/uL (0.8-1.0); MONOCYTES % (AUTO) 12.3 % (1.7-9.3); NEUTROPHILS # (AUTO) 1.7 K/uL (1.8-7.7); NEUTROPHILS % (AUTO) 36.4 % (42.2-75.2); PLATELET COUNT (AUTO) 255 K/uL (140-450); RED CELL DISTRIBUTION WIDTH 13.9 % (11.6-13.7); WHITE BLOOD COUNT (AUTO) 4.7 K/uL (4.8-10.8)
[2019-04-15] MEDS: NACL 0.9% 1,000 ML IV SCH (06:25)
[2019-04-15 06:27] LABS: MAGNESIUM 1.7 mg/dL (1.8-2.4); PHOSPHORUS 2.1 mg/dL (2.5-4.9)
[2019-04-15] MEDS: ALBUTEROL SULFATE/IPRATROPIU 3 ML SOL IH SCH ×2 (06:55→13:45)
--- NOTE | 2019-04-15 07:20 | NUR ---
RECEIVED REPORT FROM CUSTOMER SERVICE SPECIALIST NURSE. PATIENT LYING GARRY IN BED SLEEPING, AROUSABLE BY VOICE. NO DISTRESS NOTED. FLACC 0. AAOX1, APHASIC, SKIN COLOR APPROPRIATE TO ETHNICITY, WARM TO TOUCH. SKIN INTACT, LOW OLIVIER SCORE. IV SITE INTACT, PATENT, AND INFUSING IVF PER MD ORDERS. GTUBE IN PLACE, INFUSING IVF PER MD ORDERS. REVIEWED PLAN OF CARE WITH PATIENT, UNABLE TO COMPREHEND. SAFETY MEASURES IN PLACE, CALL LIGHT WITHIN REACH. WILL CONTINUE TO MONITOR.
[2019-04-15] MEDS: BLOOD GLUCOSE MONITORING 1 DEV DEV FS SCH ×3 (07:58→17:05)
[2019-04-15 08:00] VITALS: BP 110/74
[2019-04-15] MEDS ORDERED: SODIUM PHOS / POTASSIUM PHOS 1 PKT PDR GT SCH (09:00)
[2019-04-15] MEDS: METOPROLOL 50 MG TAB GT SCH (09:00)
[2019-04-15] MEDS: LISINOPRIL 10 MG TAB GT SCH (09:00)
[2019-04-15] MEDS: POLYVINYL ALCOHOL 1.4% OP 15 ML SOL BOTH EYES SCH (09:00)
[2019-04-15] MEDS: OSELTAMIVIR PHOSPHATE 75 MG CAP GT SCH (09:59)
[2019-04-15] MEDS: BACLOFEN 10 MG TAB GT SCH (10:00)
[2019-04-15] MEDS: DOCUSATE 100 MG/10 ML UDC GT SCH (10:00)
[2019-04-15] MEDS: FAMOTIDINE 20 MG TAB GT SCH (10:00)
[2019-04-15] MEDS: metFORMIN 500 MG TAB GT SCH ×2 (10:00→17:13)
[2019-04-15] MEDS: FENOFIBRATE 48 MG TAB GT SCH (10:00)
--- NOTE | 2019-04-15 10:10 | NUR ---
PATIENT LYING DOWN IN BED. NO DISTRESS NOTED. SCHEDULED MEDICATIONS DUE GIVEN. WILL CONTINUE TO MONITOR.
[2019-04-15 12:00] VITALS: BP 114/81
[2019-04-15] MEDS ORDERED: TAM75 GT (12:12)
[2019-04-15] MEDS ORDERED: PIPE1PDS26 IV (12:12)
[2019-04-15] MEDS ORDERED: MAGNESIUM OXIDE 400 MG TAB GT SCH (12:45)
--- NOTE | 2019-04-15 13:40 | NUR ---
PATIENT LYING DOWN IN BED SLEEPING, AROUSABLE BY VOICE. NO DISTRESS NOTED. CONDITION UNCHANGED. WILL CONTINUE TO MONITOR.
--- NOTE | 2019-04-15 15:00 | NUR ---
CLEANED AND REPOSITIONED PATIENT. PATIENT TOLERATED WELL. WILL CONTINUE TO MONITOR .
[2019-04-15 16:00] VITALS: BP 118/77
--- NOTE | 2019-04-15 17:13 | NUR ---
SCHEDULED MEDICATIONS DUE GIVEN. WILL CONTINUE TO MONITOR.
--- NOTE | 2019-04-15 17:43 | NUR ---
DISCHARGE INSTRUCTIONS GIVEN TO PATIENT. UNABLE TO COMPREHEND. CALLED [facility] AND GAVE REPORT TO FRANK COBURN. ANSWERED ALL OF IRISH'S QUESTIONS REGARDING TRANSFER AND NEW/CONTINUES ANTIBIOTIC MEDICATIONS. IRISH VERBALIZED COMPLETE UNDERSTANDING. NOTIFIED HER OF PICKUP TIME AT 1900 BY [facility]. [facility] TO AWAIT FOR PATIENT TRANSFER LATER TONIGHT.
--- NOTE | 2019-04-15 19:15 | NUR ---
[facility] ON UNIT TO TAKE PATIENT TO [facility]. PATIENT DISCHARGED AT THIS TIME IN STABLE CONDITION TO [facility]. IV KEPT IN DUE TO CONTINUED IV ANTIBIOTICS AT [facility].
== END 2019-04-15 19:15 | DRG 720 ==
LOC: MED 19:47 → MTU 23:41
PROVIDERS: ADMIT General Practice; ATTEND General Practice
DX: A41.9 Sepsis, unspecified organism (principal); J96.21 Acute and chronic respiratory failure with hypoxia; J69.0 Pneumonitis due to inhalation of food and vomit; J10.00 Influenza due to other identified influenza virus with unspecified type of pneumonia; I11.0 Hypertensive heart disease with heart failure; R53.2 Functional quadriplegia; D68.59 Other primary thrombophilia; I50.9 Heart failure, unspecified; R13.10 Dysphagia, unspecified; E87.1 Hypo-osmolality and hyponatremia; E83.42 Hypomagnesemia; E83.39 Other disorders of phosphorus metabolism; K21.9 Gastro-esophageal reflux disease without esophagitis; E11.9 Type 2 diabetes mellitus without complications; E78.00 Pure hypercholesterolemia, unspecified; E78.5 Hyperlipidemia, unspecified; M19.90 Unspecified osteoarthritis, unspecified site; Z79.899 Other long term (current) drug therapy; Z79.4 Long term (current) use of insulin; Z93.1 Gastrostomy status; I69.320 Aphasia following cerebral infarction
CPT/HCPCS: 36415; 36600; 71045; 74018; 80048; 80053; 81003; 82550; 82553; 82803; 82948; 83036; 83605; 83690; 83735; 83874; 83880; 84100; 84443; 84484; 85025; 85610; 85730; 87040; 87070; 87081; 87086; 87186; 87205; 87804; 94640; 96360; 99285; J1644; J1815; J2543; J3475; J7030; J7060; J7620; Q0092